=== PATIENT | female | born 1955 | race Caucasian/White ===

== ENCOUNTER 2018-12-11 16:08 | Emergency (ER) | payer OTHER ==
[~2018-12-11] VITALS: Ht 165.1 cm; Wt 83.5 kg
[2018-12-11] MEDS ORDERED: Bactrim Ds Tab1 EACH PO (16:45)
== END 2018-12-11 17:25 | disposition home or self-care (01) ==
LOC: ER 16:08
DX: L02.214 Cutaneous abscess of groin (principal); L03.314 Cellulitis of groin; Z88.0 Allergy status to penicillin; Z79.899 Other long term (current) drug therapy; I10 Essential (primary) hypertension; Z85.3 Personal history of malignant neoplasm of breast; Z87.891 Personal history of nicotine dependence
CPT/HCPCS: 10061; 99283-25

== ENCOUNTER 2018-12-19 09:44 | Emergency (ER) | payer OTHER ==
[~2018-12-19] VITALS: Ht 165.1 cm; Wt 83.5 kg
[~2018-12-19 09:44] MED LIST: Bactrim Ds Tab1 EACH PO
[2018-12-19] MEDS ORDERED: TOPI50 PO (10:06)
[2018-12-19] MEDS ORDERED: Bactrim Ds Tab1 EACH PO (10:06)
[2018-12-19] MEDS ORDERED: CLIN300 PO (10:06)
[2018-12-19] MEDS ORDERED: CARV3.125 PO (10:07)
[2018-12-19] MEDS ORDERED: Synthroid175 MCG PO (10:07)
[2018-12-19] MEDS ORDERED: CHOL10002 PO (10:08)
[2018-12-19] MEDS ORDERED: MELO7.5 PO (10:08)
[2018-12-19] MEDS ORDERED: Vitamin B Comple1 EA PO (10:09)
[2018-12-19] MEDS ORDERED: TURMERIC500 M2 PO (10:09)
[2018-12-19] MEDS ORDERED: Monodox100 MG PO (12:14)
== END 2018-12-19 12:43 | disposition home or self-care (01) ==
LOC: ER 09:44
DX: L02.214 Cutaneous abscess of groin (principal); Z88.0 Allergy status to penicillin; I10 Essential (primary) hypertension; Z85.3 Personal history of malignant neoplasm of breast; Z87.891 Personal history of nicotine dependence
CPT/HCPCS: 10061; 87070; 87075; 87077; 87186; 87205; 99283-25

== ENCOUNTER 2019-11-28 06:51 | Day surgery (SDC) | payer OTHER ==
[~2019-11-28 06:51] MED LIST changes: +CARV3.125 PO; +CHOL10002 PO; +CLIN300 PO; +MELO7.5 PO; +Monodox100 MG PO; +Synthroid175 MCG PO; +TOPI50 PO; +TURMERIC500 M2 PO; +Vitamin B Comple1 EA PO
== END 2019-11-28 22:39 | disposition home or self-care (01) ==
LOC: MOI US 06:51
DX: D24.2 Benign neoplasm of left breast (principal)
CPT/HCPCS: 19083; 77065; 88305; A4648; G0279

== ENCOUNTER 2020-12-12 15:21 | Emergency (ER) | payer MEDICARE, OTHER ==
[~2020-12-12] VITALS: Ht 167.6 cm; Wt 65.8 kg
[2020-12-12 16:10] LABS: BASOPHILS ABSOLUTE AUTO 0.07 K/mm3 (0.00-0.23); BASOPHILS PERCENT AUTO 1 % (0-2); EOSINOPHILS ABSOLUTE AUTO 0.29 K/mm3 (0.00-0.68); EOSINOPHILS PERCENT AUTO 6 % (0-6); Hematocrit 43.5 % (33.0-51.0); Hemoglobin 14.5 g/dL (11.5-16.0); IMMATURE GRAN ABSOLUTE AUTO 0.02 K/mm3 (0.00-0.10); IMMATURE GRAN PERCENT AUTO 0 % (0-1); LYMPHOCYTES ABSOLUTE AUTO 1.63 K/mm3 (0.84-5.20); LYMPHOCYTES PERCENT AUTO 32 % (21-46); MONOCYTES ABSOLUTE AUTO 0.55 K/mm3 (0.16-1.47); MONOCYTES PERCENT AUTO 11 % (4-13); Mean Corpuscular HGB 33.2 pg (26.0-34.0); Mean Corpuscular HGB Conc 33.3 g/dL (31.5-36.5); Mean Corpuscular Volume 100 fL (80-100); Mean Platelet Volume 12.2 fL (9.1-12.4); NEUTROPHILS ABSOLUTE AUTO 2.62 K/mm3 (1.96-9.15); NEUTROPHILS PERCENT AUTO 51 % (41-73); Platelet Count 157 K/mm3 (150-400); RDW Coefficient Variation 11.6 % (11.7-14.2); RDW Standard Deviation 42.5 fL (35.1-46.3); Red Blood Cell Count 4.37 M/mm3 (3.80-5.20); White Blood Cell Count 5.18 K/mm3 (4.00-11.30)
[2020-12-12 16:30] LABS: Alanine Aminotransfer (ALT/SGP 24 U/L (12-78); Albumin, Blood 3.4 g/dL (3.4-5.0); Albumin/Globulin Ratio 0.8 (0.8-1.8); Alk Phos 93 U/L (50-136); Anion Gap 10 mmol/L (6-16); Aspartate Aminotrans (AST/SGOT 18 U/L (12-37); Bilirubin, Total 0.3 mg/dL (0.1-1.0); Blood Urea Nitrogen 20 mg/dL (8-24); Bun/Creatinine Ratio 36.2 (12.0-20.0); CO2, Blood 21 mmol/L (21-32); Calcium, Blood 8.7 mg/dL (8.5-10.1); Chloride, Blood 109 mmol/L (98-108); Creatinine, Blood 0.55 mg/dL (0.40-1.00); Globulin, Blood 4.3 g/dL (2.2-4.0); Glomerular Filtration Rate >60 (60-); Glucose, Blood 100 mg/dL (70-99); Potassium, Blood 4.1 mmol/L (3.5-5.5); Sodium, Blood 140 mmol/L (136-145); Total Protein, Blood 7.7 g/dL (6.4-8.2); Troponin I <0.015 ng/mL (0.000-0.040)
== END 2020-12-12 19:10 | disposition home or self-care (01) ==
LOC: ER 15:21
PROVIDERS: Physician Assistant
DX: R07.89 Other chest pain (principal); M25.511 Pain in right shoulder; I10 Essential (primary) hypertension; Z88.0 Allergy status to penicillin; Z79.899 Other long term (current) drug therapy; Z87.891 Personal history of nicotine dependence
CPT/HCPCS: 36415; 71046; 80053; 84484; 85025; 93005; 93010; 96374; 99285-25; J1885

== ENCOUNTER 2021-06-04 10:16 | Day surgery (SDC) | payer MEDICARE, OTHER ==
[~2021-06-04] VITALS: Ht 160 cm; Wt 83.3 kg
--- NOTE | 2021-06-04 12:39 | NUR ---
06/04/21 1239 Chito Quijano 1233 TIME OUT PERFORMED FOR BLOCK WITH .
--- NOTE | 2021-06-04 13:19 | NUR ---
06/04/21 1319 Liu Flores 1 MG EPI ADDED TO EACH OF THE FIRST 3 BAGS OF LR PER ORDER FOR IRRIGATION.
== END 2021-06-04 15:24 | disposition home or self-care (01) ==
LOC: ORSCSDS 10:16
PROVIDERS: Orthopaedic Surgery
PROC: 0RNJ4ZZ Release Right Shoulder Joint, Percutaneous Endoscopic Approach (ICD-10-PCS; principal; 2021-06-04 11:45)
PROC: 0LS34ZZ Reposition Right Upper Arm Tendon, Percutaneous Endoscopic Approach (ICD-10-PCS; principal; 2021-06-04 11:45)
PROC: 0LQ14ZZ Repair Right Shoulder Tendon, Percutaneous Endoscopic Approach (ICD-10-PCS; principal; 2021-06-04 11:45)
PROC: 0PB94ZZ Excision of Right Clavicle, Percutaneous Endoscopic Approach (ICD-10-PCS; principal; 2021-06-04 11:45)
DX: M75.111 Incomplete rotator cuff tear or rupture of right shoulder, not specified as traumatic (principal); M75.21 Bicipital tendinitis, right shoulder; M75.41 Impingement syndrome of right shoulder; M19.011 Primary osteoarthritis, right shoulder; M79.7 Fibromyalgia; J45.909 Unspecified asthma, uncomplicated; I10 Essential (primary) hypertension; E03.9 Hypothyroidism, unspecified; Z79.82 Long term (current) use of aspirin; Z79.899 Other long term (current) drug therapy
CPT/HCPCS: A9270; C1713; J0171; J1100; J2001; J2250; J2405; J2704; J3010; J7120

== ENCOUNTER 2022-01-23 08:22 | Day surgery (SDC) | payer MEDICARE, OTHER ==
[~2022-01-23] VITALS: Ht 162.6 cm; Wt 76.5 kg
[2022-01-23] MEDS ORDERED: METO25ER (08:50)
[2022-01-23] MEDS ORDERED: FISH OIL 1,2001 EAC7 (08:51)
== END 2022-01-23 11:22 | disposition home or self-care (01) ==
LOC: ORSCSDS 08:22
PROVIDERS: Orthopaedic Surgery
PROC: 01S40ZZ Reposition Ulnar Nerve, Open Approach (ICD-10-PCS; principal; 2022-01-23 09:45)
PROC: 01N50ZZ Release Median Nerve, Open Approach (ICD-10-PCS; principal; 2022-01-23 09:45)
DX: G56.01 Carpal tunnel syndrome, right upper limb (principal); G56.21 Lesion of ulnar nerve, right upper limb; I10 Essential (primary) hypertension; E03.9 Hypothyroidism, unspecified; K21.9 Gastro-esophageal reflux disease without esophagitis; G47.33 Obstructive sleep apnea (adult) (pediatric); J45.909 Unspecified asthma, uncomplicated; M79.7 Fibromyalgia; Z79.899 Other long term (current) drug therapy; Z79.82 Long term (current) use of aspirin
CPT/HCPCS: A9270; J2250; J2405; J2704; J2795; J3010; J7120

== ENCOUNTER 2022-03-05 05:45 | Day surgery (SDC) | payer MEDICARE, OTHER ==
[~2022-03-05] VITALS: Ht 165.1 cm; Wt 78.0 kg
[~2022-03-05 05:45] MED LIST changes: +ALBU90OI INH; +Aspir 8181 MG PO; -CHOL10002 PO; +FISH OIL 1,2001 EAC7; +HYDR1TAB94 PO; +METO50ER PO; +OMEP20ER PO; +SYMBICORT 80-10.2 GM; +VITAMIN D310 MC5 PO; +ZEBUTAL 50-3251 EAC1
--- NOTE | 2022-03-05 07:29 | NUR ---
PT RETURNED TO RECOVERY ROOM IN BED. RIGHT FEMORAL GROIN SITE SOFT NON-TENDER WITH NO HEMATOMA, NO BLEEDING AND INTACT DRESSING. R DP PULSE 2+. PT DENIES CHEST PAIN. CALL LIGHT IN REACH.
--- NOTE | 2022-03-05 07:30 | NUR ---
PT TO RECOVERY ROOM POST PROCEDURE. PT AWAKE AND CONVERSING APPROPRIATELY; DENIES PAIN POST PROCEDURE. MONITOR SR 60-70'S, B/P 132/62, AFEBRILE, SPO2 98% RA. R GROIN NO SWELLING/HEMATOMA, TEGADERM DRSG INTACT; ANGIO SEAL DEPLOYED, RLE PULSES 2+ DP, 1+ PT. PT TAKING SIPS OF WATER WITHOUT ISSUE.
--- NOTE | 2022-03-05 08:13 | NUR ---
REPORT TO CHON TAVERAS; ALL QUESTIONS ANSWERED.
--- NOTE | 2022-03-05 10:00 | NUR ---
HOB RAISED TO 90 DEGREES, PT PREVIOUSLY ATE 100% OF MEAL TRAY. TOLERATED WITH NO DIFFICULTIES. RIGHT GROIN SITE APPEARED SOFT NON TENDER WITH NO PAIN OR BLEEDING NOTED. PT REQUEST TO GET UP FOR RESTROOM, SLOW STEADY GAIT USING CANE. UNMEASURED VOID. DENIES CP AND SOB. NO NEEDS AT THIS TIME.
--- NOTE | 2022-03-05 10:30 | NUR ---
PT'S UPDATED ON DISCHARGE TIME. PT ABLE TO MOVE AROUND FREELY ON [employer]. RIGHT GROIN SITE REMAINS SOFT NON TENDER WITH NO BLEEDING. DRESSING IS INTACT. PT CONTINUE TO DENY CHEST PAIN. CALL LIGHT IN REACH.
--- NOTE | 2022-03-05 11:25 | NUR ---
DISCHARGE PT AMBULATED TO RESTROOM AND DRESSED SELF WITH NO COMPLICATIONS. R FEMORAL SITE WITH NO BLEEDING, OOZING OR HEMATOMA NOTED. PT DENIES ANY PAIN. PT STATES HER UNDERSTANDING OF DC AND SITE CARE INSTRUCTIONS AND DENIES ANY QUESTIONS OR CONCERNS UPON DC. IV DCD WITH CATH INTACT. PT TAKEN TO EXIT VIA WHEELCHAIR WHERE SHAAN WAS WAITING WITH VEHICLE.
== END 2022-03-05 11:41 | disposition home or self-care (01) ==
LOC: MHTC 05:45
DX: I25.119 Atherosclerotic heart disease of native coronary artery with unspecified angina pectoris (principal); Z87.891 Personal history of nicotine dependence; I10 Essential (primary) hypertension; K21.9 Gastro-esophageal reflux disease without esophagitis; J45.909 Unspecified asthma, uncomplicated; G47.33 Obstructive sleep apnea (adult) (pediatric); E03.9 Hypothyroidism, unspecified; Z93.3 Colostomy status; Z79.82 Long term (current) use of aspirin; I08.2 Rheumatic disorders of both aortic and tricuspid valves; Z88.0 Allergy status to penicillin; Z88.6 Allergy status to analgesic agent; Z91.030 Bee allergy status
CPT/HCPCS: 93454; 99152; C1760; C1769; C1894; J1644; J2250; J3010; J7030; Q9967

== ENCOUNTER → 2022-08-05 | Outpatient (CLI) | payer MEDICARE, OTHER ==
[~2022-08-05] MED LIST changes: +Prednisone50 MG PO
== END ==
LOC: LAB 08:11 → LAB SHORT 08:11
DX: L57.0 Actinic keratosis (principal); L72.0 Epidermal cyst; S30.811A Abrasion of abdominal wall, initial encounter
CPT/HCPCS: 88305

== ENCOUNTER 2023-06-13 08:49 | Inpatient (IN) | payer MEDICARE, OTHER ==
[~2023-06-13] VITALS: Ht 165.1 cm; Wt 79.1 kg
[~2023-06-13 08:49] MED LIST changes: -SYMBICORT 80-10.2 GM; +SYMBICORT 80-10.2 GM INH
[2023-06-13 10:07] LABS: BASOPHILS ABSOLUTE AUTO 0.03 K/mm3 (0.00-0.23); BASOPHILS PERCENT AUTO 0 % (0-2); EOSINOPHILS ABSOLUTE AUTO 0.01 K/mm3 (0.00-0.68); EOSINOPHILS PERCENT AUTO 0 % (0-6); Hematocrit 47.3 % (33.0-51.0); Hemoglobin 16.4 g/dL (11.5-16.0); IMMATURE GRAN ABSOLUTE AUTO 0.08 K/mm3 (0.00-0.10); IMMATURE GRAN PERCENT AUTO 1 % (0-1); LYMPHOCYTES ABSOLUTE AUTO 1.12 K/mm3 (0.84-5.20); LYMPHOCYTES PERCENT AUTO 7 % (21-46); MONOCYTES ABSOLUTE AUTO 0.93 K/mm3 (0.16-1.47); MONOCYTES PERCENT AUTO 6 % (4-13); Mean Corpuscular HGB 33.4 pg (26.0-34.0); Mean Corpuscular HGB Conc 34.7 g/dL (31.5-36.5); Mean Corpuscular Volume 96 fL (80-100); NEUTROPHILS ABSOLUTE AUTO 13.43 K/mm3 (1.96-9.15); NEUTROPHILS PERCENT AUTO 86 % (41-73); Platelet Count 244 K/mm3 (150-400); RDW Coefficient Variation 13.6 % (11.7-14.2); RDW Standard Deviation 48.4 fL (35.1-46.3); Red Blood Cell Count 4.91 M/mm3 (3.80-5.20)
[2023-06-13 10:26] LABS: Albumin, Blood 2.7 g/dL (3.4-5.0); Albumin/Globulin Ratio 0.6 (0.8-1.8); Bilirubin, Total 0.6 mg/dL (0.1-1.0); Bun/Creatinine Ratio 66.7 (12.0-20.0); Calcium, Blood 8.4 mg/dL (8.5-10.1); Creatinine, Blood 0.5 mg/dL (0.40-1.00); Globulin, Blood 4.4 g/dL (2.2-4.0); Potassium, Blood 3.6 mmol/L (3.5-5.5); Total Protein, Blood 7.1 g/dL (6.4-8.2)
[2023-06-13 10:36] LABS: Source, Urine Clean Catch
[2023-06-13 10:39] LABS: Bilirubin, Urine Neg (Neg); Blood, Urine 1+ (Neg); Glucose Qualitative, Urine Neg (Neg); Ketones, Urine 1+ (Neg); Leukocyte Esterase, Urine Neg (Neg); Nitrite, Urine Neg (Neg); Protein, Urine 2+ (Neg); Urobilinogen, Urine NORM (Normal); pH, Urine 6.5 (5.0-8.0)
[2023-06-13 10:45] LABS: Appearance, Urine Clear (Clear); Color, Urine Yellow (P-Yellow)
[2023-06-13 10:47] LABS: Bacteria Few /hpf; Red Blood Cells, Urine 0-2 /hpf (0-2); Squamous Epithelial Cells Mod /hpf (Few); White Blood Cells, Urine 0-2 /hpf (0-5)
[2023-06-13 13:49] VITALS: BP 155/71
--- NOTE | 2023-06-13 18:27 | NUR ---
SHIFT SUMMARY PT AXO PLEASANT AND COOPERATIVE WITH CARE. ADMITTED THIS SHIFT. PT ARRIVED TO ROOM VIA WHEELCHAIR AT 1330. PT MEDICATED FOR PAIN AND NAUSEA PER EMAR. PT EDUCATED ON FIRE PREVENTION AND IGNITION SOURCES. PT DEMONSTRATES KNOWLEDGE AND DENIES IGNITION SOURCES. IV PATENT AND INFUSING PER EMAR. PT NPO. BED IN LOW POSITION, CALL LIGHT WITHIN REACH. UP WITH SBA WITH GB AND FWW.
[2023-06-13 19:18] VITALS: BP 141/63
[2023-06-14 03:10] VITALS: BP 157/63
[2023-06-14 05:04] LABS: BASOPHILS ABSOLUTE AUTO 0.04 K/mm3 (0.00-0.23); BASOPHILS PERCENT AUTO 0 % (0-2); EOSINOPHILS ABSOLUTE AUTO 0.04 K/mm3 (0.00-0.68); EOSINOPHILS PERCENT AUTO 0 % (0-6); Hemoglobin 13.7 g/dL (11.5-16.0); IMMATURE GRAN ABSOLUTE AUTO 0.04 K/mm3 (0.00-0.10); IMMATURE GRAN PERCENT AUTO 0 % (0-1); LYMPHOCYTES ABSOLUTE AUTO 0.85 K/mm3 (0.84-5.20); LYMPHOCYTES PERCENT AUTO 7 % (21-46); MONOCYTES ABSOLUTE AUTO 1.01 K/mm3 (0.16-1.47); MONOCYTES PERCENT AUTO 9 % (4-13); Mean Corpuscular HGB 33.3 pg (26.0-34.0); Mean Corpuscular HGB Conc 33.4 g/dL (31.5-36.5); Mean Corpuscular Volume 100 fL (80-100); Mean Platelet Volume 12.5 fL (9.1-12.4); NEUTROPHILS ABSOLUTE AUTO 9.54 K/mm3 (1.96-9.15); NEUTROPHILS PERCENT AUTO 83 % (41-73); Platelet Count 172 K/mm3 (150-400); RDW Coefficient Variation 13.9 % (11.7-14.2); RDW Standard Deviation 50.9 fL (35.1-46.3); Red Blood Cell Count 4.11 M/mm3 (3.80-5.20); White Blood Cell Count 11.52 K/mm3 (4.00-11.30)
[2023-06-14 05:51] LABS: Albumin, Blood 2.1 g/dL (3.4-5.0); Albumin/Globulin Ratio 0.6 (0.8-1.8); Bilirubin, Total 0.5 mg/dL (0.1-1.0); Bun/Creatinine Ratio 59.4 (12.0-20.0); Calcium, Blood 7.6 mg/dL (8.5-10.1); Creatinine, Blood 0.44 mg/dL (0.40-1.00); Globulin, Blood 3.5 g/dL (2.2-4.0); Magnesium, Blood 1.9 mg/dL (1.6-2.4); Potassium, Blood 3.3 mmol/L (3.5-5.5); Thyroid Stimulating Hormone 2.16 uIU/mL (0.360-4.800); Total Protein, Blood 5.6 g/dL (6.4-8.2)
--- NOTE | 2023-06-14 06:02 | NUR ---
SHIFT SUMMARY PT SITTING UP IN BED DURING BEDSIDE ROUNDS, IV INFUSING AT 200ML/HR- IGNITION ASSESSMENT DONE- PT DENIED SMOKING OR HAVING AN ITEMS OF IGNITION, GAVE TORADOL AND DILAUDID FOR PAIN MANAGEMENT, PT REFUSED STOOL SOFTNER- PT CONCERNED OF GETTING NAUSEATED- ASSISTED PT TO BR- PT USED FWW WITHOUT PROBLEMS, 0300 PT UP TO BR - BP ELEVATED D/T PT REPORTS PAIN 06/18- GAVE TORADOL SCHEDULED- WILL MONITOR FOR RELIEF- REPEAT DOSE OF DILAUDID D/T 05/18 PAIN-BED LOW POSITION, CALL LIGHT WITHIN REACH, PT USES CALL LIGHT APPROPRIATE
[2023-06-14 07:43] VITALS: BP 116/70
--- NOTE | 2023-06-14 08:00 | NUR ---
pt laying in bed awake a/ox4, pleasant and cooperative with care, follows commands well, reports stomach pain, and nausea and isn't tolerating any liquids yet, lungs are clear t/o, resp even and unlabored, no cough noted, hrr, murmur noted, no edema noted, ppp+2, cap refill <3sec, vs stable, afebrile, iv site to lac site is clear and patent, infusing ns at 125mls/hr, bt not auscultated, abd soft tender, reports no bm in 6 days, and is not normal for her, voids without diff, skin c/w/d, maew, katarina, call light in reach.
--- NOTE | 2023-06-14 13:32 | NUR ---
medicated for pain, spouce in room, assisted to bathroom, pt does pretty well using a walker, but needs sba, not tolerating liquids yet, states she is agreeable to enema for constipation. call light in reach.
[2023-06-14 14:00] VITALS: BP 134/53
--- NOTE | 2023-06-14 17:14 | NUR ---
gave pt fleets, she had results, was very tired after, states she felt like it was a bowling ball, assisted back to bed, no further needs at this time. call light in reach.
--- NOTE | 2023-06-14 18:30 | NUR ---
pt feeling some better having had a bm, no complaints or acute changes this shift. call light in reach.
[2023-06-14 19:09] VITALS: BP 148/63
[2023-06-15 05:00] LABS: BASOPHILS ABSOLUTE AUTO 0.02 K/mm3 (0.00-0.23); BASOPHILS PERCENT AUTO 0 % (0-2); EOSINOPHILS ABSOLUTE AUTO 0.04 K/mm3 (0.00-0.68); EOSINOPHILS PERCENT AUTO 0 % (0-6); Hematocrit 38.1 % (33.0-51.0); Hemoglobin 12.5 g/dL (11.5-16.0); IMMATURE GRAN ABSOLUTE AUTO 0.06 K/mm3 (0.00-0.10); IMMATURE GRAN PERCENT AUTO 1 % (0-1); LYMPHOCYTES ABSOLUTE AUTO 0.73 K/mm3 (0.84-5.20); LYMPHOCYTES PERCENT AUTO 7 % (21-46); MONOCYTES ABSOLUTE AUTO 1.05 K/mm3 (0.16-1.47); MONOCYTES PERCENT AUTO 10 % (4-13); Mean Corpuscular HGB 33.9 pg (26.0-34.0); Mean Corpuscular HGB Conc 32.8 g/dL (31.5-36.5); Mean Corpuscular Volume 103 fL (80-100); Mean Platelet Volume 12.1 fL (9.1-12.4); NEUTROPHILS ABSOLUTE AUTO 8.66 K/mm3 (1.96-9.15); NEUTROPHILS PERCENT AUTO 82 % (41-73); Platelet Count 147 K/mm3 (150-400); RDW Coefficient Variation 14.1 % (11.7-14.2); RDW Standard Deviation 53.8 fL (35.1-46.3); Red Blood Cell Count 3.69 M/mm3 (3.80-5.20); White Blood Cell Count 10.56 K/mm3 (4.00-11.30)
[2023-06-15 05:13] VITALS: BP 143/66
[2023-06-15 05:23] LABS: Albumin, Blood 1.6 g/dL (3.4-5.0); Albumin/Globulin Ratio 0.5 (0.8-1.8); Bilirubin, Total 0.5 mg/dL (0.1-1.0); Bun/Creatinine Ratio 24.6 (12.0-20.0); Calcium, Blood 7.5 mg/dL (8.5-10.1); Creatinine, Blood 0.41 mg/dL (0.40-1.00); Globulin, Blood 3.4 g/dL (2.2-4.0); Potassium, Blood 3.1 mmol/L (3.5-5.5)
--- NOTE | 2023-06-15 06:59 | NUR ---
SHIFT SUMMARY PT SITTING UP IN BED DURING BEDSIDE ROUNDS, PT REPORTS NOT TOLERATING CLEARS- PT REPORTED HAVING BROTH THIS AM AND VOMITTED IT UP INSTANTLY- IGNITION ASSESSMENT DONE- PT DENIES HAVING ANY ITEMS OF IGNITION- PT REFUSED SCHEDULED STOOL SOFTNER AND PROBIOTIC D/T NAUSEA- PT REPORTED HAVING A LARGE BM TODAY AFTER ENEMA AND FEELS LIKE SHE NEEDS TO HAVE MORE BUT REFUSES ANY BOWEL CARE AT THIS TIME- GAVE DILAUDID FOR PT CONTINUES TO REPORT UPPER ABD PAIN- IV INFUSING WITHOUT PROBLEMS, PT USES CALL LIGHT APPROPRIATELY
[2023-06-15 08:04] VITALS: BP 140/64
--- NOTE | 2023-06-15 15:09 | NUR ---
Patient is lying in bed and alert. She tells me about the events that led to her hospitalization and about her concerns going forward. She talks about her Christain mary, her strong family support and her many pets at home. Her family consists of her spouse, Josh, her dtr, his dtr and 13 grandchildren. She states that she would like me to pray that the doctors have clear direction and are able to get to the heart of the infection. I gladly provide therapeutic listening, prayer and anxiety containment. Patient responds well and shows signs of greater peace. I will continue to remain available.
--- NOTE | 2023-06-15 17:21 | NUR ---
SHIFT SUMMARY PT AxOx4. PLEASANT AND COOPERATIVE WITH CARE. PT UNABLE TO EAT OR DRINK MORE THAN A FEW SIPS OF LIQUID THIS SHIFT D/T INCREASED STOMACH PAINS WITH EATING. PT IS ON IV FLUIDS. PT REPORTS POOR PAIN CONTROL WITH PAIN MEDS TODAY. PROVIDER NOTIFIED AND MEDS ADJUSTED. PT REPORTS CHANGES ARE NOT HELPING, BUT IS WILLING TO GIVE IT MORE TIME. PT IS SBA WITH FWW TO BATHROOM. CALLS APPROPRIATELY. IN ROOM TODAY, UPDATED ON PLAN OF CARE. VITALS REVIEWED. PT IS CURRENTLY LYING IN BED, TRYING TO NAP. PT WAS EDUCATED ON FIRE RISK AND SAFETY, WITH VERBALIZED UNDERSTANDING. PT DENIES ANY NEEDS AT THIS TIME. CALL LIGHT IN REACH.
[2023-06-15 17:33] VITALS: BP 132/55
[2023-06-15 19:32] VITALS: BP 132/62
--- NOTE | 2023-06-16 04:31 | NUR ---
SHIFT SUMMARY ADMITTED FOR IDIOPATHIC PANCREATITIS. FULL CODE. SHE IS ON A CLEAR LIQUID DIET, BUT CONSUMING LITTLE DUE TO ABDOMINAL PAIN. D5 1/2 NS IS INFUSING. ANTI NAUSEA AND PAIN RX HAVE BEEN GIVEN THIS SHIFT. SHE STATES THE PO PAIN RX IS INADEQUATE TO CONTROL HER PAIN. HX OF BREAST CA IN REMISSION, COPD. SHE STATES SHE RARELY DRINKS. SHE DID FALL INTO A COUNTERTOP ONE WEEK PREVIOUS. STANDBY ASSIST W/FWW - BRP. ON RA.
[2023-06-16 05:00] LABS: BASOPHILS ABSOLUTE AUTO 0.02 K/mm3 (0.00-0.23); BASOPHILS PERCENT AUTO 0 % (0-2); EOSINOPHILS ABSOLUTE AUTO 0.13 K/mm3 (0.00-0.68); EOSINOPHILS PERCENT AUTO 1 % (0-6); Hematocrit 36.6 % (33.0-51.0); IMMATURE GRAN ABSOLUTE AUTO 0.06 K/mm3 (0.00-0.10); IMMATURE GRAN PERCENT AUTO 1 % (0-1); LYMPHOCYTES ABSOLUTE AUTO 0.73 K/mm3 (0.84-5.20); LYMPHOCYTES PERCENT AUTO 8 % (21-46); MONOCYTES ABSOLUTE AUTO 1.15 K/mm3 (0.16-1.47); MONOCYTES PERCENT AUTO 12 % (4-13); Mean Corpuscular HGB 33.1 pg (26.0-34.0); Mean Corpuscular HGB Conc 32.8 g/dL (31.5-36.5); Mean Corpuscular Volume 101 fL (80-100); Mean Platelet Volume 11.8 fL (9.1-12.4); NEUTROPHILS ABSOLUTE AUTO 7.67 K/mm3 (1.96-9.15); NEUTROPHILS PERCENT AUTO 79 % (41-73); Platelet Count 160 K/mm3 (150-400); RDW Coefficient Variation 13.7 % (11.7-14.2); Red Blood Cell Count 3.63 M/mm3 (3.80-5.20); White Blood Cell Count 9.76 K/mm3 (4.00-11.30)
[2023-06-16 05:01] VITALS: BP 96/60
[2023-06-16 05:17] VITALS: BP 135/60
[2023-06-16 05:35] LABS: Albumin, Blood 1.6 g/dL (3.4-5.0); Albumin/Globulin Ratio 0.4 (0.8-1.8); Bilirubin, Total 0.5 mg/dL (0.1-1.0); Bun/Creatinine Ratio 10.4 (12.0-20.0); Calcium, Blood 7.6 mg/dL (8.5-10.1); Creatinine, Blood 0.48 mg/dL (0.40-1.00); Globulin, Blood 3.7 g/dL (2.2-4.0); Potassium, Blood 3.4 mmol/L (3.5-5.5); Total Protein, Blood 5.3 g/dL (6.4-8.2)
[2023-06-16 08:15] VITALS: BP 121/51
[2023-06-16 16:16] VITALS: BP 109/58
--- NOTE | 2023-06-16 19:28 | NUR ---
SHIFT SUMMARY PT A&OX4 AND PLEASANT. PT UNABLE TO TOLERATE CL DIET D/T PAIN. PT STATED IT CAUSED PAIN WHEN SHE ATTEMPTED TO TAKE A COUPLE BITES OF BROTH THIS MORNING ANS HAS SINCE REFUSED HER LUNCH AND DINNER TRAY. PT WAS ABLE TO HAVE TWO SMALL BM'S. PT C/O PAIN AND NAUSEA AND MEDICATED PER EMAR. TORADOL WAS GIVEN IN THE AFTERNOON WITH VERY GOOD EFFECT. PT'S WAS AT BEDSIDE DURING THE AFTERNOON. PT WAS TAKEN FOR CT SCAN OF ABD THIS MORNING. RESULTS UNDER IMAGING. PT CALL APPROPRIATLY. BED IN LOWEST POSITION AND CALL LIGHT IN REACH.
[2023-06-16 19:45] VITALS: BP 110/58
[2023-06-17 04:25] VITALS: BP 112/54
[2023-06-17 04:51] LABS: BASOPHILS ABSOLUTE AUTO 0.02 K/mm3 (0.00-0.23); BASOPHILS PERCENT AUTO 0 % (0-2); EOSINOPHILS ABSOLUTE AUTO 0.16 K/mm3 (0.00-0.68); EOSINOPHILS PERCENT AUTO 2 % (0-6); Hematocrit 34.1 % (33.0-51.0); Hemoglobin 11.4 g/dL (11.5-16.0); IMMATURE GRAN ABSOLUTE AUTO 0.02 K/mm3 (0.00-0.10); IMMATURE GRAN PERCENT AUTO 0 % (0-1); LYMPHOCYTES ABSOLUTE AUTO 0.69 K/mm3 (0.84-5.20); LYMPHOCYTES PERCENT AUTO 9 % (21-46); MONOCYTES ABSOLUTE AUTO 0.95 K/mm3 (0.16-1.47); MONOCYTES PERCENT AUTO 12 % (4-13); Mean Corpuscular HGB 33.6 pg (26.0-34.0); Mean Corpuscular HGB Conc 33.4 g/dL (31.5-36.5); Mean Corpuscular Volume 101 fL (80-100); NEUTROPHILS ABSOLUTE AUTO 5.93 K/mm3 (1.96-9.15); NEUTROPHILS PERCENT AUTO 76 % (41-73); Platelet Count 177 K/mm3 (150-400); RDW Coefficient Variation 13.7 % (11.7-14.2); RDW Standard Deviation 50.7 fL (35.1-46.3); Red Blood Cell Count 3.39 M/mm3 (3.80-5.20); White Blood Cell Count 7.77 K/mm3 (4.00-11.30)
--- NOTE | 2023-06-17 04:54 | NUR ---
SHIFT SUMMARY MS HENDRIX HAS HAD UPPER ABDOMINAL PAIN THROUGHOUT THE NIGHT. PAIN HAS BEEN 6-7/10 DESPITE MEDICATIONS. DILAUDID TOOK PAIN FROM 05/18 TO 04/18. SHE HAS TAKEN SIPS OF WATER WITH MEDICATIONS. SHE REPORTS AN INCREASE IN PAIN WHEN SHE DRINKS FLUIDS. CONTINUOUS IVF AT 75CC/HR. MILD NAUSEA CONSTANTLY WITH ONE EPISODE OF NAUSEA REQUIRING ZOFRAN. 1 PERSON ASSISTANCE UP TO THE BATHROOM. STEADY GAIT THOUGH SHE FEELS WEAK. BED LOW, BED ALARM ON, CALL IGHT IN REACH.
[2023-06-17 05:09] LABS: Albumin, Blood 1.6 g/dL (3.4-5.0); Albumin/Globulin Ratio 0.4 (0.8-1.8); Bilirubin, Total 0.4 mg/dL (0.1-1.0); Bun/Creatinine Ratio 11.3 (12.0-20.0); Calcium, Blood 7.8 mg/dL (8.5-10.1); Creatinine, Blood 0.36 mg/dL (0.40-1.00); Globulin, Blood 3.7 g/dL (2.2-4.0); Total Protein, Blood 5.3 g/dL (6.4-8.2)
[2023-06-17 07:30] VITALS: BP 143/57
[2023-06-17 15:54] VITALS: BP 127/46
[2023-06-17 19:17] VITALS: BP 133/59
--- NOTE | 2023-06-17 19:22 | NUR ---
SHIFT SUMMARY PT A&OX4 AND PLEASANT. PT STILL UNABLE TO TOLERATE CL DIET. PAIN IS CONSISTANTLY AROUND 5 ON THE PAIN SCALE. PT VERBALIZED FEELING NAUSEOUS TWICE DURING THE SHIFT. MEDICATED PER EMAR. PT HAS TROUBLE WITH ORAL MEDICATIONS D/T PAIN AND DRY HEAVING WHEN SWALLING WATER. MEDICATIONS ARE GIVEN SLOWLY AND SPREAD APART. PPN NUTRITION STARTED TODAY. PICC LINE PLACED. AT BEDSIDE DURING AFTERNOON. DR. DUVAL IN TO SEE PT. CONTINUING IV ABX. VSS. BED IN LOWEST POSITION AND CALL LIGHT IN REACH.
[2023-06-18 02:05] VITALS: BP 132/60
[2023-06-18 05:40] LABS: BASOPHILS ABSOLUTE AUTO 0.03 K/mm3 (0.00-0.23); BASOPHILS PERCENT AUTO 0 % (0-2); EOSINOPHILS ABSOLUTE AUTO 0.19 K/mm3 (0.00-0.68); EOSINOPHILS PERCENT AUTO 2 % (0-6); Hematocrit 35.8 % (33.0-51.0); IMMATURE GRAN ABSOLUTE AUTO 0.03 K/mm3 (0.00-0.10); IMMATURE GRAN PERCENT AUTO 0 % (0-1); LYMPHOCYTES ABSOLUTE AUTO 0.94 K/mm3 (0.84-5.20); LYMPHOCYTES PERCENT AUTO 11 % (21-46); MONOCYTES ABSOLUTE AUTO 1.01 K/mm3 (0.16-1.47); MONOCYTES PERCENT AUTO 12 % (4-13); Mean Corpuscular HGB 33.7 pg (26.0-34.0); Mean Corpuscular HGB Conc 33.5 g/dL (31.5-36.5); Mean Corpuscular Volume 101 fL (80-100); NEUTROPHILS ABSOLUTE AUTO 6.45 K/mm3 (1.96-9.15); NEUTROPHILS PERCENT AUTO 75 % (41-73); Platelet Count 204 K/mm3 (150-400); RDW Standard Deviation 51.8 fL (35.1-46.3); Red Blood Cell Count 3.56 M/mm3 (3.80-5.20); White Blood Cell Count 8.65 K/mm3 (4.00-11.30)
[2023-06-18 06:07] LABS: Magnesium, Blood 1.9 mg/dL (1.6-2.4)
[2023-06-18 06:08] LABS: Alanine Aminotransfer (ALT/SGP 21 U/L (12-78); Albumin, Blood 1.6 g/dL (3.4-5.0); Albumin/Globulin Ratio 0.4 (0.8-1.8); Alk Phos 93 U/L (50-136); Anion Gap 4 mmol/L (6-16); Aspartate Aminotrans (AST/SGOT 27 U/L (12-37); Bilirubin, Total 0.3 mg/dL (0.1-1.0); Blood Urea Nitrogen 8 mg/dL (8-24); Bun/Creatinine Ratio 25.6 (12.0-20.0); CO2, Blood 30 mmol/L (21-32); Calcium, Blood 8.3 mg/dL (8.5-10.1); Chloride, Blood 105 mmol/L (98-108); Creatinine, Blood 0.31 mg/dL (0.40-1.00); Globulin, Blood 4.3 g/dL (2.2-4.0); Glomerular Filtration Rate 115 (60-); Glucose, Blood 131 mg/dL (70-99); Phosphorus, Blood 2.5 mg/dL (2.5-4.9); Potassium, Blood 3.5 mmol/L (3.5-5.5); Prealbumin, Blood 4.8 mg/dL (20.0-40.0); Sodium, Blood 139 mmol/L (136-145); Total Protein, Blood 5.9 g/dL (6.4-8.2); Triglycerides 88 mg/dL (30-160)
--- NOTE | 2023-06-18 06:20 | NUR ---
SHIFT SUMMARY PRN PAIN AND NAUSEA MEDS GIVEN, PT STATES PAIN IS MUCH IMPROVED WITH DILAUDID. PT NOT ABLE TO TOLERATE PREVIOUS ORAL FLUIDS, SUGGESTED PT DRINK ROOM TEMPERATRURE LIQUIDS. PT ABLE TO TAKE MEDICATIONS AND DRINK ONE FULL GLASS OF WATER, NO VOMITING. FIRE SAFETY CHECKS COMPLETED Q1H, NO IGNITION SOURCES FOUND
[2023-06-18 07:40] VITALS: BP 121/65
--- NOTE | 2023-06-18 07:48 | NUR ---
pt laying in bed awake a/ox4, pleasant and cooperative with care, follows commands well, denies pain at this time, lungs are clear a bit dim in bases, resp even and unlabored, no cough noted, hrr, no edema noted, ppp+1, cap refill <3 sec, vs stable, afebrile, iv is picc line to mini site is clear and patent, infusing ppn, and d51/2, dressing intact, btx4, abd flat soft nontender, voids without diff, skin c/w/d, maew, uses walker to ambulate, skin c/w/d, maew, katarina, call light in reach.
[2023-06-18 15:53] VITALS: BP 118/54
--- NOTE | 2023-06-18 18:25 | NUR ---
pt had a bout of nasea this afternoon, zofran was effective, no further changes this shift. call light in reach.
[2023-06-18 19:32] VITALS: BP 148/61
[2023-06-19 05:16] VITALS: BP 114/50
[2023-06-19 05:39] LABS: BASOPHILS ABSOLUTE AUTO 0.02 K/mm3 (0.00-0.23); BASOPHILS PERCENT AUTO 0 % (0-2); EOSINOPHILS ABSOLUTE AUTO 0.19 K/mm3 (0.00-0.68); EOSINOPHILS PERCENT AUTO 3 % (0-6); Hematocrit 34.2 % (33.0-51.0); Hemoglobin 11.4 g/dL (11.5-16.0); IMMATURE GRAN ABSOLUTE AUTO 0.05 K/mm3 (0.00-0.10); IMMATURE GRAN PERCENT AUTO 1 % (0-1); LYMPHOCYTES ABSOLUTE AUTO 0.89 K/mm3 (0.84-5.20); LYMPHOCYTES PERCENT AUTO 13 % (21-46); MONOCYTES ABSOLUTE AUTO 1.06 K/mm3 (0.16-1.47); MONOCYTES PERCENT AUTO 15 % (4-13); Mean Corpuscular HGB 33.4 pg (26.0-34.0); Mean Corpuscular HGB Conc 33.3 g/dL (31.5-36.5); Mean Corpuscular Volume 100 fL (80-100); Mean Platelet Volume 11.8 fL (9.1-12.4); NEUTROPHILS ABSOLUTE AUTO 4.77 K/mm3 (1.96-9.15); NEUTROPHILS PERCENT AUTO 68 % (41-73); Platelet Count 204 K/mm3 (150-400); RDW Coefficient Variation 14.1 % (11.7-14.2); RDW Standard Deviation 52.7 fL (35.1-46.3); Red Blood Cell Count 3.41 M/mm3 (3.80-5.20); White Blood Cell Count 6.98 K/mm3 (4.00-11.30)
--- NOTE | 2023-06-19 06:26 | NUR ---
PT LAYING IN BED DURING BEDSIDE REPORT- PT REQUESTED PAIN MEDICATION DURING BEDSIDE REPORT - GAVE DILAUDID 1MG IV- CALL TO [facility] INTERN LATER IN THE NIGHT REQUESTING ORAL PAIN MED- PT HAD SCHEDULED NORCO THAT STOPPED 06/18/23 - PT REPORTS GETTING RELIEF FROM THE ORAL PAIN MED- NEW ORDER FOR NORCO 7.5 PRN- GAVE A DOSE LATER IN THE SHIFT - PT REQUESTED MELATONIN EARLY AND WAS ABLE TO GET GOOD SLEEP PER PT- TPN INFUSING IN LEFT UPPER ARM PICC- PT CALLS APPROPRIATELY AND AMBULATED TO WITH FWW AND SBA, BED LOW POSITION, CALL LIGHT WITHIN REACH
[2023-06-19 06:58] LABS: Albumin, Blood 1.5 g/dL (3.4-5.0); Albumin/Globulin Ratio 0.4 (0.8-1.8); Bilirubin, Total 0.4 mg/dL (0.1-1.0); Bun/Creatinine Ratio 50.7 (12.0-20.0); Calcium, Blood 8.2 mg/dL (8.5-10.1); Creatinine, Blood 0.34 mg/dL (0.40-1.00); Globulin, Blood 3.9 g/dL (2.2-4.0); Phosphorus, Blood 4.7 mg/dL (2.5-4.9); Potassium, Blood 3.3 mmol/L (3.5-5.5); Total Protein, Blood 5.4 g/dL (6.4-8.2)
[2023-06-19 07:44] VITALS: BP 123/51
--- NOTE | 2023-06-19 08:45 | NUR ---
pt resting in bed, wakes easily, states she is feeling some better today, looks brighter, ordered toridol for her, report abd pain at 5/10, lungs are clear t/o, resp even and unlabored, on r/a, no cough noted, hrr, no edema noted, ppp+2, cap refill <3 sec, vs stable, afebrile, iv is picc line to mini site is clear and patent, btx4, abd flat soft nontender, voids without diff, reports a number of loose stools yesterday and wants to hold the stool softeners today, also doesn't want asa as she feels it will irritate her stomach, skin c/w/d, cali, uses a walker to ambulate and is a sba to the bathroom, katarina, call light in reach.
[2023-06-19 15:25] VITALS: BP 140/63
--- NOTE | 2023-06-19 18:19 | NUR ---
pt doing much better today, is tolerating some liquids, no further changes this shift. call light in reach.
[2023-06-19 19:22] VITALS: BP 135/62
[2023-06-20 02:57] VITALS: BP 141/52
[2023-06-20 05:29] LABS: BASOPHILS ABSOLUTE AUTO 0.03 K/mm3 (0.00-0.23); BASOPHILS PERCENT AUTO 1 % (0-2); EOSINOPHILS ABSOLUTE AUTO 0.21 K/mm3 (0.00-0.68); EOSINOPHILS PERCENT AUTO 3 % (0-6); Hematocrit 35.2 % (33.0-51.0); Hemoglobin 11.8 g/dL (11.5-16.0); IMMATURE GRAN ABSOLUTE AUTO 0.02 K/mm3 (0.00-0.10); IMMATURE GRAN PERCENT AUTO 0 % (0-1); LYMPHOCYTES ABSOLUTE AUTO 0.77 K/mm3 (0.84-5.20); LYMPHOCYTES PERCENT AUTO 12 % (21-46); MONOCYTES ABSOLUTE AUTO 1.02 K/mm3 (0.16-1.47); MONOCYTES PERCENT AUTO 16 % (4-13); Mean Corpuscular HGB 33.8 pg (26.0-34.0); Mean Corpuscular HGB Conc 33.5 g/dL (31.5-36.5); Mean Corpuscular Volume 101 fL (80-100); Mean Platelet Volume 11.7 fL (9.1-12.4); NEUTROPHILS PERCENT AUTO 67 % (41-73); Platelet Count 210 K/mm3 (150-400); RDW Coefficient Variation 14.1 % (11.7-14.2); RDW Standard Deviation 52.3 fL (35.1-46.3); Red Blood Cell Count 3.49 M/mm3 (3.80-5.20); White Blood Cell Count 6.25 K/mm3 (4.00-11.30)
[2023-06-20 05:59] LABS: Albumin, Blood 1.6 g/dL (3.4-5.0); Albumin/Globulin Ratio 0.4 (0.8-1.8); Bilirubin, Total 0.3 mg/dL (0.1-1.0); Bun/Creatinine Ratio 35.1 (12.0-20.0); Calcium, Blood 8.3 mg/dL (8.5-10.1); Creatinine, Blood 0.37 mg/dL (0.40-1.00); Globulin, Blood 4.5 g/dL (2.2-4.0); Magnesium, Blood 2.1 mg/dL (1.6-2.4); Phosphorus, Blood 3.6 mg/dL (2.5-4.9); Potassium, Blood 4.1 mmol/L (3.5-5.5); Total Protein, Blood 6.1 g/dL (6.4-8.2)
--- NOTE | 2023-06-20 06:35 | NUR ---
PT SITTING UP IN BED DURING BEDSIDE REPORT, TPN INFUSING TO LEFT UPPER ARM PICC LINE, PT REPORTS PAIN AND NAUSEA HAS BEEN DECREASED ALL DAY- PT ON SCHEDULED NORCO AND REPORTS PAIN IN CONTROL- PT TOOK HS MEDS WITHOUT PROBLEMS, PT CALLS APPROPRIATELY FOR SBA TO RESTROOM WITH WALKER- PT TOOK MELATONIN AND TORADOL TO HELP SLEEP - PT SLEPT T/O NIGHT, BED LOW POSITION, CALL LIGHT WITHIN REACH
[2023-06-20 07:35] VITALS: BP 105/60
[2023-06-20 15:16] VITALS: BP 132/55
--- NOTE | 2023-06-20 16:28 | NUR ---
SHIFT SUMMARY PATIENT IS ALERT AND ORIENTED. PATIENT HAS HAD NO ACUTE EVENTS THIS SHIFT. PATIENT HAS HAD TPN DISCONTINUED. PATIENT HAS BEEN UPGRADED TO MECHANICAL SOFT DIET AND TOLERATIN WELL. PATIENT HAS NOT NEEDED ADDITIONAL PAIN MEDICATION OTHER THAN SCHEDULED PAIN MEDS. PATIENT HAS BEEN PLEASENT AND COOPERATIVE. BED IN LOCKED AND LOWEST POSITION. CALL LIGHT IN PLACE. WILL MONITOR UNTIL SHIFT CHANGE.
[2023-06-20 19:30] VITALS: BP 125/54
[2023-06-21 02:48] VITALS: BP 134/59
[2023-06-21 05:15] LABS: BASOPHILS ABSOLUTE AUTO 0.04 K/mm3 (0.00-0.23); BASOPHILS PERCENT AUTO 1 % (0-2); EOSINOPHILS ABSOLUTE AUTO 0.24 K/mm3 (0.00-0.68); EOSINOPHILS PERCENT AUTO 4 % (0-6); Hematocrit 33.7 % (33.0-51.0); Hemoglobin 11.1 g/dL (11.5-16.0); IMMATURE GRAN ABSOLUTE AUTO 0.05 K/mm3 (0.00-0.10); IMMATURE GRAN PERCENT AUTO 1 % (0-1); LYMPHOCYTES ABSOLUTE AUTO 0.85 K/mm3 (0.84-5.20); LYMPHOCYTES PERCENT AUTO 13 % (21-46); MONOCYTES ABSOLUTE AUTO 1.01 K/mm3 (0.16-1.47); MONOCYTES PERCENT AUTO 15 % (4-13); Mean Corpuscular HGB 32.9 pg (26.0-34.0); Mean Corpuscular HGB Conc 32.9 g/dL (31.5-36.5); Mean Corpuscular Volume 100 fL (80-100); Mean Platelet Volume 12.1 fL (9.1-12.4); NEUTROPHILS ABSOLUTE AUTO 4.38 K/mm3 (1.96-9.15); NEUTROPHILS PERCENT AUTO 67 % (41-73); Platelet Count 199 K/mm3 (150-400); RDW Coefficient Variation 14.2 % (11.7-14.2); RDW Standard Deviation 52.4 fL (35.1-46.3); Red Blood Cell Count 3.37 M/mm3 (3.80-5.20); White Blood Cell Count 6.57 K/mm3 (4.00-11.30)
[2023-06-21 05:47] LABS: Albumin, Blood 1.6 g/dL (3.4-5.0); Albumin/Globulin Ratio 0.4 (0.8-1.8); Bilirubin, Total 0.3 mg/dL (0.1-1.0); Bun/Creatinine Ratio 25.7 (12.0-20.0); Calcium, Blood 8.3 mg/dL (8.5-10.1); Creatinine, Blood 0.39 mg/dL (0.40-1.00); Globulin, Blood 4.3 g/dL (2.2-4.0); Potassium, Blood 3.8 mmol/L (3.5-5.5); Total Protein, Blood 5.9 g/dL (6.4-8.2)
[2023-06-21 07:50] VITALS: BP 113/63
[2023-06-21 15:32] VITALS: BP 137/53
--- NOTE | 2023-06-21 16:32 | NUR ---
SHIFT SUMMARY PATIENT IS ALERT AND ORIENTED. PATIENT HAS HAD NO ACUTE EVENTS THIS SHIFT. PATIENT HAS NOT COMPLAINED OF SOB OR VOMITTING THIS SHIFT. PATIENT HAS COMPLAINED OF NAUSEA AND PAIN THIS SHIFT. MEDICATED PER EMAR. PATIENT HAS BEEN IND IN ROOM THIS SHIFT. PATIENT WAS DOWNGRADED FROM MECHANICAL SOFT DIET TO FULL LIQUIDS AFTER NOT TOLERATING SOLID FOOD DIET WELL. BED IN LOCKED AND LOWEST POSITION. CALL LIGHT IN PLACE WILL MONITOR UNTIL SHIFT CHANGE.
--- NOTE | 2023-06-22 04:17 | NUR ---
END OF SHIFT SUMMARY UNEVENTFUL NIGHT. PT SLEPT WELL, ONLY WAKING UP FOR SCHEDULED MEDICATIONS. PT ABLE TO MAKE NEEDS KNOWN. PT AMBULATES WITH 1P ASSIST FWW, PT CONTINENT OF B/B. PT TOLERATING FULL LIQUID DIET. L UPPER ARM HAS A PICC LINE THAT FLUSHES WELL. CLUSTERED CARE TO LET PT SLEEP DURING THE NIGHT. CALL LIGHT WITHIN REACH, WCTM.
[2023-06-22 04:40] VITALS: BP 131/57
[2023-06-22 07:32] VITALS: BP 113/64
[2023-06-22] MEDS ORDERED: ONDA4 PO (11:15)
--- NOTE | 2023-06-22 13:24 | NUR ---
DISCHARGE SUMMARY PATIENT IS ALERT AND ORIENTED. PATIENT HAS HAD NO ACUTE EVENTS THIS SHIFT. PATIENT HAS BEEN MEDICATED FOR PAIN. PATIENT HAS NOT HAD AND COMPLAINTS OF SOB, NAUSEA OR VOMITTING THIS SHIFT. VITAL SIGNS REVIEWED. PATIENT IS BEING DISCHARGED HOME WITH TRANSPORTING.
== END 2023-06-22 13:06 | disposition home or self-care (01) | DRG 440 ==
LOC: ER 08:49 → MEDS 11:45
PROVIDERS: Emergency Medicine; Hospitalist; ADMIT Internal Medicine
PROC: 02HV33Z Insertion of Infusion Device into Superior Vena Cava, Percutaneous Approach (ICD-10-PCS; principal; 2023-06-17)
PROC: 3E0336Z Introduction of Nutritional Substance into Peripheral Vein, Percutaneous Approach (ICD-10-PCS; 2023-06-17)
DX: K85.20 Alcohol induced acute pancreatitis without necrosis or infection (principal); I10 Essential (primary) hypertension; K21.9 Gastro-esophageal reflux disease without esophagitis; K44.9 Diaphragmatic hernia without obstruction or gangrene; I25.10 Atherosclerotic heart disease of native coronary artery without angina pectoris; G47.33 Obstructive sleep apnea (adult) (pediatric); J44.9 Chronic obstructive pulmonary disease, unspecified; E03.9 Hypothyroidism, unspecified; K86.89 Other specified diseases of pancreas; E78.5 Hyperlipidemia, unspecified; F10.10 Alcohol abuse, uncomplicated; B19.20 Unspecified viral hepatitis C without hepatic coma; E83.51 Hypocalcemia; Z88.0 Allergy status to penicillin; Z90.710 Acquired absence of both cervix and uterus; Z85.3 Personal history of malignant neoplasm of breast; Z87.891 Personal history of nicotine dependence; Z98.890 Other specified postprocedural states; Z90.89 Acquired absence of other organs; Z91.038 Other insect allergy status; Z88.5 Allergy status to narcotic agent; Z79.899 Other long term (current) drug therapy; Z79.82 Long term (current) use of aspirin; Z79.891 Long term (current) use of opiate analgesic; Z98.49 Cataract extraction status, unspecified eye; Z79.51 Long term (current) use of inhaled steroids; Z79.52 Long term (current) use of systemic steroids; Z79.811 Long term (current) use of aromatase inhibitors
CPT/HCPCS: 36415; 36416; 71046; 74177; 76705; 80053; 81001; 82947; 83690; 83735; 84100; 84134; 84443; 84478; 85025; 94640; 94664; 94760; 96361; 96374-59; 96375; 99285-25; A9270; C9113; J1170; J1650; J1885; J1956; J2185; J2405; J2765; J3411; J7030; J7042; J7050; J7060; Q9967

== ENCOUNTER 2023-09-14 05:49 | Day surgery (SDC) | payer MEDICARE, OTHER ==
[~2023-09-14] VITALS: Ht 165.1 cm; Wt 74.5 kg
[2023-09-14] VITALS (14 sets, daily range): BP systolic 121–158; BP diastolic 59–87
[~2023-09-14 05:49] MED LIST changes: +FISH OIL 1,0001 EA10 PO; +MELATONIN5 M1 PO; +NITR.4SL SL; +ONDA4 PO
--- NOTE | 2023-09-14 11:13 | NUR ---
DISCHARGE NOTE PT A&OX4, BREATHING RA, AT BEDSIDE. PT BREATHING EVENLY AND UNLABORED. PT EXPERIENCED N/V DURING STEP DOWN, WAS MEDICATED PER DR NEWBERRY VS, PT REPORTS NAUSEA FEELING BETTER UPON DISCHARGE AND ALSO STATED SHE HAS NAUSEA MEDICATION AT HOME. AT 1025 BLOODY DRAINAGE WAS NOTED ON THE LOWER MIDLINE LAP SITE C REDDISH SMALL BULDGE APPEARING FROM THE INCISION. AT 1038 DR EVERETT EVALUATED INCISION AND SAID TO USE BAINDAIDS UNTIL DRAINIGE STOPPED. BANDAIDS TO DRESSINGS WERE CHANGED TWICE WHILE IN DSU. PT SENT HOME WITH ADDITIONAL BANDAIDS. PT VSS. PT WAS ABLE TO EAT A SMALL SNACK AND TOLERATE SOME PO FLUIDS PRIOR TO DISCHARGE. Discharge instructions reviewed with patient. Patient verbalizes understanding. Copy given to patient to take home. Dressing to procedure site clean, dry, intact with no visible drainage, swelling, erythema or bruising noted IN OTHER THREE LAP SITES. NO OTHER CONCERNS. Discharged via wheelchair to private car for ride home.
== END 2023-09-14 11:10 | disposition home or self-care (01) ==
LOC: ORSCMMR 05:49 → ORD 07:30 → ORSCMMR 11:10
DX: K82.4 Cholesterolosis of gallbladder (principal); Z87.19 Personal history of other diseases of the digestive system; K21.9 Gastro-esophageal reflux disease without esophagitis; J45.909 Unspecified asthma, uncomplicated; G47.33 Obstructive sleep apnea (adult) (pediatric); I10 Essential (primary) hypertension; Z86.19 Personal history of other infectious and parasitic diseases; Z85.3 Personal history of malignant neoplasm of breast; E03.9 Hypothyroidism, unspecified; E78.5 Hyperlipidemia, unspecified; Z79.82 Long term (current) use of aspirin; Z79.899 Other long term (current) drug therapy
CPT/HCPCS: 74300; 88304; A9270; C1729; J1100; J1790; J1885; J2250; J2270; J2405; J2704; J2710; J2765; J3010; J7120

== ENCOUNTER 2023-11-23 22:34 | Inpatient (IN) | payer MEDICARE, OTHER ==
[~2023-11-23] VITALS: Ht 165.1 cm; Wt 74.3 kg
[~2023-11-23 22:34] MED LIST changes: +LEVSOD137 PO; -Synthroid175 MCG PO
[2023-11-23] MEDS ORDERED: DOXY100 PO (22:56)
[2023-11-23] MEDS ORDERED: Hydroxyzine HCl50 MG PO (22:57)
[2023-11-23 23:07] LABS: BASOPHILS ABSOLUTE AUTO 0.05 K/mm3 (0.00-0.23); BASOPHILS PERCENT AUTO 1 % (0-2); EOSINOPHILS ABSOLUTE AUTO 0.12 K/mm3 (0.00-0.68); EOSINOPHILS PERCENT AUTO 2 % (0-6); Hematocrit 44.1 % (33.0-51.0); Hemoglobin 14.9 g/dL (11.5-16.0); IMMATURE GRAN ABSOLUTE AUTO 0.03 K/mm3 (0.00-0.10); IMMATURE GRAN PERCENT AUTO 1 % (0-1); LYMPHOCYTES ABSOLUTE AUTO 1.77 K/mm3 (0.84-5.20); LYMPHOCYTES PERCENT AUTO 27 % (21-46); MONOCYTES ABSOLUTE AUTO 0.59 K/mm3 (0.16-1.47); MONOCYTES PERCENT AUTO 9 % (4-13); Mean Corpuscular HGB 33.1 pg (26.0-34.0); Mean Corpuscular HGB Conc 33.8 g/dL (31.5-36.5); Mean Corpuscular Volume 98 fL (80-100); Mean Platelet Volume 11.9 fL (9.1-12.4); NEUTROPHILS PERCENT AUTO 60 % (41-73); Platelet Count 166 K/mm3 (150-400); RDW Coefficient Variation 12.3 % (11.7-14.2); RDW Standard Deviation 44.8 fL (35.1-46.3); White Blood Cell Count 6.46 K/mm3 (4.00-11.30)
[2023-11-23 23:42] LABS: Albumin, Blood 3.1 g/dL (3.4-5.0); Albumin/Globulin Ratio 0.7 (0.8-1.8); Bilirubin, Total 0.4 mg/dL (0.1-1.0); Bun/Creatinine Ratio 28.4 (12.0-20.0); Calcium, Blood 8.8 mg/dL (8.5-10.1); Creatinine, Blood 0.42 mg/dL (0.40-1.00); Globulin, Blood 4.4 g/dL (2.2-4.0); Potassium, Blood 3.4 mmol/L (3.5-5.5); Total Protein, Blood 7.5 g/dL (6.4-8.2)
[2023-11-24 04:05] LABS: CHOL/HDL RATIO 12.6; Cholesterol 177 mg/dL (50-200); HDL Cholesterol 14 mg/dL (>39); LDL/HDL RATIO 10.4; Low Density Lipoprotein Chol 145 mg/dL (0-110); Triglycerides 89 mg/dL (30-160); Very Low Density Lipoprot Chol 17 mg/dL (6-32)
[2023-11-24 04:38] LABS: BASOPHILS ABSOLUTE AUTO 0.05 K/mm3 (0.00-0.23); BASOPHILS PERCENT AUTO 1 % (0-2); EOSINOPHILS ABSOLUTE AUTO 0.13 K/mm3 (0.00-0.68); EOSINOPHILS PERCENT AUTO 2 % (0-6); Hematocrit 38.1 % (33.0-51.0); IMMATURE GRAN ABSOLUTE AUTO 0.02 K/mm3 (0.00-0.10); IMMATURE GRAN PERCENT AUTO 0 % (0-1); LYMPHOCYTES ABSOLUTE AUTO 1.67 K/mm3 (0.84-5.20); LYMPHOCYTES PERCENT AUTO 28 % (21-46); MONOCYTES ABSOLUTE AUTO 0.72 K/mm3 (0.16-1.47); MONOCYTES PERCENT AUTO 12 % (4-13); Mean Corpuscular HGB 33.1 pg (26.0-34.0); Mean Corpuscular HGB Conc 34.1 g/dL (31.5-36.5); Mean Corpuscular Volume 97 fL (80-100); Mean Platelet Volume 11.9 fL (9.1-12.4); NEUTROPHILS ABSOLUTE AUTO 3.43 K/mm3 (1.96-9.15); NEUTROPHILS PERCENT AUTO 57 % (41-73); Platelet Count 134 K/mm3 (150-400); RDW Coefficient Variation 12.5 % (11.7-14.2); Red Blood Cell Count 3.93 M/mm3 (3.80-5.20); White Blood Cell Count 6.02 K/mm3 (4.00-11.30)
[2023-11-24 05:23] VITALS: BP 143/74
[2023-11-24 05:29] LABS: Albumin, Blood 2.8 g/dL (3.4-5.0); Albumin/Globulin Ratio 0.8 (0.8-1.8); Bilirubin, Total 0.4 mg/dL (0.1-1.0); Bun/Creatinine Ratio 28.6 (12.0-20.0); Calcium, Blood 8.2 mg/dL (8.5-10.1); Creatinine, Blood 0.42 mg/dL (0.40-1.00); Globulin, Blood 3.7 g/dL (2.2-4.0); Potassium, Blood 3.2 mmol/L (3.5-5.5); Total Protein, Blood 6.5 g/dL (6.4-8.2)
--- NOTE | 2023-11-24 06:09 | NUR ---
ARRIVAL TO UNIT AFTER RECEIVING REPORT FROM NATY GIVENS, PATIENT TRANSFERRED TO UNIT VIA ED [facility] AT APPROX 1915. PATIENT ABLE TO AMBULATE FROM ED [facility] TO HOSPITAL BED WITH MINIMAL ASSIST. USES CANE, FWW AT BASELINE FOR MOBILITY ASSIST DUE TO SPINAL INJURY AND CHRONIC BILATERAL KNEE PAIN. PATIENT WEARING BILATERAL KNEE BRACES. PERSONAL CANE WITH PATIENT. PATIENT AMBULATED TO RESTROOM WITH CANE. VOIDING. IS ALERT AND ORIENTED X4. REPORTS 6/10 R UPPER ABDOMINAL PAIN, REPORTS THAT IT IS TOLERABLE AT THIS TIME. PER NATY, PATIENT RECEIVED DOSE OF DILAUDID DUE AT 0400 PRIOR TO ARRIVAL. NATY RN IS UNABLE TO CHART ADMINISTRATION DUE TO COMPUTER ERROR. THIS RN UNABLE TO DOCUMENT ON SCHEDULED DOSE OF DILAUDID COMPUTER ERROR STATES THAT NATY IS CURRENTLY DOCUMENTING ON MEDICATION. ABDOMEN IS SOFT, TENDER TO PALPATION, ESPECIALLY IN R UPPER QUADRANT. NORMOACTIVE BOWEL TONES. REPORT MILD NAUSEA, NO VOMITING. TELEMETRY SHOWING SINUS 60's. DENIES CHEST PAIN, PRESSURE. BP STABLE. DOES REPORT MILD SHORTNESS OF BREATH. IS ON ROOM AIR, SATS >90%. IVF INFUSING PER EMAR. CALL LIGHT IN REACH. WILL REPORT TO ONCCHUCK GIVENS.
[2023-11-24 06:58] VITALS: BP 144/64
--- NOTE | 2023-11-24 07:24 | NUR ---
Recieved report from Noc RN in room. Patient is awake and able to communicate her needs. She is on RA and sats >90% and denies any SOB. She is independent in bed with positioning for comfort and has call light within reach and uses it appropriately. CT called and is in route to take her to her CTA and patient has been told. Patient denies any current needs. She has 20ga IV to LLFA and has LR infusing at 125 ml/hr.
--- NOTE | 2023-11-24 12:43 | NUR ---
Patient has been resting in bed and calls appropriate. Medicated patient for pain and nausea. She has been up to bathroom withh assist with equipmemnt. Patient remains on RA and sats >90%. She has LR infusing at 125 ml/hr and Potassium at 50 ml/hr. She has been independnet in bed with positiomning. No real changes from am note. All am Med were IV and tolerated well.
[2023-11-24 12:48] VITALS: BP 162/68
[2023-11-24] MEDS ORDERED: BUTALB-ACETAMI1 EAC5 PO (14:17)
[2023-11-24] MEDS ORDERED: ATOR10 PO (14:17)
--- NOTE | 2023-11-24 15:30 | NUR ---
Patient has been resting. Family by for several hours Pastoral care by to see patient. Medicated for pain and nausea per JAN. She remains on RA and sats >90%. Remains independent with positioning in bed. Calls appropriately. LR continues at 125 ml/hr. Patient has been up to bathroom with SBA.
--- NOTE | 2023-11-24 16:04 | NUR ---
Spiritual care visit conducted. upon receiving a referral for spiritual care, I visited the patient. She talks about her medical history, the high quality of her RN Nirmal and the medical staff and the current plan of care moving forward. She shares about her Confucianism mary, her solid family and friend support and the emotionally rough days that she has at times. I normalize her feelings and fears, highlight her strengths and helpful attitudes and provide therapeutic listening, gentle apprise counselor, levity and prayer. She showed clear signs of being encouraged by conversation centered around the goodness of God and good comedic timing. I will continue to remain available to patient and family.
[2023-11-24 19:50] VITALS: BP 115/62
[2023-11-24 23:57] VITALS: BP 164/62
--- NOTE | 2023-11-25 00:58 | NUR ---
ASSUMPTION OF CARE AFTER RECEIVING REPORT FROM KORINA GIVENS, THIS RN ASSUMED CARE AT APPROX 1915. DURING INITIAL ENCOUNTER, PATIENT SLEEPING, EASILY AROUSABLE TO VERBAL STIMULI. IS ALERT AND ORIENTED X4. COOPERATIVE WITH CARE, RECEPTIVE TO EDUCATION. USES CALL LIGHT APPROPRIATELY. ABLE TO REPOSITION HERSELF IN BED INDEPENDENTLY. AMBULATES TO RESTROOM WITH CANE WITH STAND BY ASSIST FROM STAFF. PATIENT REPORTS 6/10 R UPPER QUADRANT PAIN THAT IS TOLERABLE AT THIS TIME. REPORTS MILD NAUSEA. PLAN TO MEDICATE PER EMAR FOR PAIN AND NAUSEA NEEDED. TELEMETRY SHOWING SINUS 70's. BP STABLE. DENIES CHEST PAIN, PRESSURE. RT AT BEDSIDE TO SET UP CPAP MACHINE TO USE WHILE SLEEPING. ON ROOM AIR WHILE AWAKE. CALL LIGHT IN REACH.
[2023-11-25 03:00] VITALS: BP 147/56
--- NOTE | 2023-11-25 05:33 | NUR ---
SHIFT SUMMARY NO ACUTE CHANGES SINCE ASSUMPTION OF CARE NOTE. PATIENT SLEPT PERIODICALLY THROUGHOUT SHIFT WITH CPAP IN PLACE, SATS >90%. REMAINS EASILY AROUSABLE TO VERBAL STIMULI. TELEMETRY SHOWING SINUS 70's. BP STABLE. MANAGING R UPPER QUADRANT PAIN AND NAUSEA PER EMAR WITH IV DILAUDID AND IV COMPAZINE. PATIENT ABLE TO REPOSITION HERSELF INDEPENDENTLY IN BED. USES CALL LIGHT FOR ASSISTANCE TO RESTROOM. VOIDING. CALL LIGHT IN REACH. WILL REPORT TO ONCOMING RN.
[2023-11-25 05:38] LABS: BASOPHILS ABSOLUTE AUTO 0.05 K/mm3 (0.00-0.23); BASOPHILS PERCENT AUTO 1 % (0-2); EOSINOPHILS PERCENT AUTO 4 % (0-6); Hematocrit 36.7 % (33.0-51.0); Hemoglobin 12.4 g/dL (11.5-16.0); IMMATURE GRAN ABSOLUTE AUTO 0.01 K/mm3 (0.00-0.10); IMMATURE GRAN PERCENT AUTO 0 % (0-1); LYMPHOCYTES ABSOLUTE AUTO 1.02 K/mm3 (0.84-5.20); LYMPHOCYTES PERCENT AUTO 21 % (21-46); MONOCYTES ABSOLUTE AUTO 0.61 K/mm3 (0.16-1.47); MONOCYTES PERCENT AUTO 13 % (4-13); Mean Corpuscular HGB Conc 33.8 g/dL (31.5-36.5); Mean Corpuscular Volume 98 fL (80-100); Mean Platelet Volume 12.3 fL (9.1-12.4); NEUTROPHILS ABSOLUTE AUTO 2.93 K/mm3 (1.96-9.15); NEUTROPHILS PERCENT AUTO 61 % (41-73); Platelet Count 124 K/mm3 (150-400); RDW Coefficient Variation 12.5 % (11.7-14.2); RDW Standard Deviation 45.1 fL (35.1-46.3); Red Blood Cell Count 3.76 M/mm3 (3.80-5.20); White Blood Cell Count 4.82 K/mm3 (4.00-11.30)
[2023-11-25 06:45] LABS: Albumin, Blood 2.6 g/dL (3.4-5.0); Albumin/Globulin Ratio 0.8 (0.8-1.8); Bilirubin, Total 0.4 mg/dL (0.1-1.0); Bun/Creatinine Ratio 19.2 (12.0-20.0); Calcium, Blood 8.7 mg/dL (8.5-10.1); Creatinine, Blood 0.37 mg/dL (0.40-1.00); Globulin, Blood 3.3 g/dL (2.2-4.0); Potassium, Blood 3.3 mmol/L (3.5-5.5); Total Protein, Blood 5.9 g/dL (6.4-8.2)
[2023-11-25 07:36] VITALS: BP 139/74
[2023-11-25 12:23] VITALS: BP 145/67
[2023-11-25 14:33] VITALS: BP 145/67
--- NOTE | 2023-11-25 14:39 | NUR ---
PT ARIIVED @1440 VSS, LUNG SOUNDS CLEAR, DIM IN BASES. TOLERATING PO INTAKE. AOX4, SBA TO IND IN ROOM USES CANE. ORIENTED TO CALL LIGHT.
--- NOTE | 2023-11-25 15:19 | NUR ---
TRANSFER OF CARE PT TRANSFER TO SURGICAL UNIT AT APPROX 1430. PT AOX4 VSS. PT MEDICATED PER EMAR FOR RUQ PAIN AND NAUSEA, SEE EMAR. PT DENIES CHEST PAIN/PPRESSURE. ORDERS GIVEN PER TO ADVANCE DIET TOLERATED. NO ACUTE CHANGES.
[2023-11-25 19:24] VITALS: BP 137/56
[2023-11-26 04:36] VITALS: BP 144/67
--- NOTE | 2023-11-26 06:01 | NUR ---
SHIFT SUMMARY PT IS HERE WITH PANCREATITIS. PT WAS ABLE TO SLEEP FOR MOST OF THE NIGHT WITH HER CPAP ON AND WAS GIVEN ANTI-NAUSEA AND PAIN MEDICATION TOWARDS THE END OF THE SHIFT (PT TAKEN OVER BY THIS RN AROUND 2300 ON 11/25/23). NO ACUTE EVENTS OCCURRING OVERNIGHT. BED IS IN LOWEST POSITION, CALL LIGHT IS WITHIN REACH.
[2023-11-26 07:03] LABS: Albumin, Blood 2.7 g/dL (3.4-5.0); Albumin/Globulin Ratio 0.8 (0.8-1.8); Bilirubin, Total 0.4 mg/dL (0.1-1.0); Bun/Creatinine Ratio 9.9 (12.0-20.0); Calcium, Blood 8.8 mg/dL (8.5-10.1); Creatinine, Blood 0.4 mg/dL (0.40-1.00); Globulin, Blood 3.6 g/dL (2.2-4.0); Potassium, Blood 3.3 mmol/L (3.5-5.5); Total Protein, Blood 6.3 g/dL (6.4-8.2)
[2023-11-26 07:10] VITALS: BP 138/60
--- NOTE | 2023-11-26 09:00 | NUR ---
PT PLEASANT COOP A/O X3, TALKATIVE. STATES SOME ABD PAIN, 6. MED TO BRING TO 5 PER EMAR. H/R REG, NO MURMUR NOTED. NO TELE. LUNGS CLEAR, RESP EASY UNLABORED, ON R/A. ABD IS TENDER TO TOUCH. BT X4. LAST BM 2 DAYS PER PT. VOIDS IND TO BATHROOM. BED IN LOW POSITION, CALL LITE IN REACH, CALLS APPROP
[2023-11-26 14:42] VITALS: BP 144/58
[2023-11-26 14:56] LABS: HCV QNT BY NAAT (IU/ML) Not Detected; HCV QNT BY NAAT (LOG IU/ML) Not Detected; HCV QNT BY NAAT INTERP Not Detected (Not Detected)
--- NOTE | 2023-11-26 15:06 | NUR ---
pt admits to diarrhea started since last nite, and continues today. called dr. whiteside
--- NOTE | 2023-11-26 16:30 | NUR ---
SPOKE TO DR MEDEROS. RE DIARRHEA. STATES TO MAKE ORDERS FOR PT.
--- NOTE | 2023-11-26 17:28 | NUR ---
PT PLEASANT TODAY. STATES PAIN MANAGED WITH AVAIL MEDS. PT STATES HAS DEVELOPED DIARRHEA LAST NIGHT AND [address]CUSS[address] WITH [address] MEDEROS. HE TO PLACE ORDERS. PT WAS SEEN BY DR DUVAL, NO OTHER CONCERNS NOTED TODAY. BED IN LOW POSITION, CALL LITE IN REACH, CALLS APPROP
[2023-11-26 19:24] VITALS: BP 140/57
[2023-11-27 04:34] VITALS: BP 136/59
--- NOTE | 2023-11-27 06:25 | NUR ---
SHIFT SUMMARY PT IS HERE FOR MANAGEMENT OF PANCREATITIS. PER PT REQUEST, ASKED MD ABOUT ORDERING THE PT'S NIGHTLY HOME DOSE OF ATARAX, WHICH WAS GIVEN LATER IN THE EVENING. PAIN MEDICATION AND ANTI-NAUSEA MEDICATION GIVEN A COUPLE TIMES THROUGHOUT THE SHIFT. NO ACUTE EVENTS OVERNIGHT, VITAL SIGNS HAVE BEEN STABLE. BED IS IN LOWEST POSITION, CALL LIGHT IS WITHIN REACH.
[2023-11-27 07:01] VITALS: BP 131/63
[2023-11-27 08:47] LABS: Bun/Creatinine Ratio 5.3 (12.0-20.0); Calcium, Blood 8.9 mg/dL (8.5-10.1); Creatinine, Blood 0.38 mg/dL (0.40-1.00); Potassium, Blood 3.2 mmol/L (3.5-5.5)
[2023-11-27] MEDS ORDERED: PROM25 PO (14:12)
[2023-11-27] MEDS ORDERED: POTCHL20ER PO (14:13)
--- NOTE | 2023-11-27 14:36 | NUR ---
DISCHARGE NOTE: PATIENT WAS EDUCATED ON DISCHARGE INSTRUCTIONS. SHE VERBALIZED UNDERSTANDING OF INSTRUCTIONS AND HAD NO FURTHER QUESTIONS AT THIS TIME. HER HARD PERSCRIPTION AND HER LAB DRAW PERSCRIPTION WERE PLACED IN HER DISCHARGE FOLDER. HER OTHER PERSCRIPTIONS WERE FAXED TO [facility]. PAIN IS MANAGED WITH PO PAIN MEDS. HER NAUSEA IS MANAGED WITH PO PHENERGAN. PATIENT IS TOLERATING PO INTAKE, VOIDING, AND PASSING GAS/HAVING BMS. SHE IS INDEP. IN THE ROOM. PATIENT IS DRESSED AND HAS PERSONAL ITEMS IN THE ROOM GATHERED. PATIENT WAS WHEELCHAIRED OUT TO HER HUSBANDS CAR TO BE TAKEN HOME.
[2023-11-28 11:34] LABS: HIV 1,2 COMBO ANTIGEN/ANTIBODY Negative (Negative)
== END 2023-11-27 14:41 | disposition home or self-care (01) | DRG 439 ==
LOC: ER 22:34 → PCU 11-24 03:07 → SURS 11-25 14:31
PROVIDERS: Emergency Medicine; Family Medicine; Student in an Organized Health Care Education/Training Program; ADMIT Student in an Organized Health Care Education/Training Program
DX: K85.90 Acute pancreatitis without necrosis or infection, unspecified (principal); K86.3 Pseudocyst of pancreas; R04.2 Hemoptysis; E87.6 Hypokalemia; R94.31 Abnormal electrocardiogram [ECG] [EKG]; R07.89 Other chest pain; E78.5 Hyperlipidemia, unspecified; I10 Essential (primary) hypertension; J44.9 Chronic obstructive pulmonary disease, unspecified; K44.9 Diaphragmatic hernia without obstruction or gangrene; K21.9 Gastro-esophageal reflux disease without esophagitis; B19.20 Unspecified viral hepatitis C without hepatic coma; E03.9 Hypothyroidism, unspecified; E86.0 Dehydration; I25.10 Atherosclerotic heart disease of native coronary artery without angina pectoris; G43.909 Migraine, unspecified, not intractable, without status migrainosus; D69.6 Thrombocytopenia, unspecified; J40 Bronchitis, not specified as acute or chronic; G47.33 Obstructive sleep apnea (adult) (pediatric); Z90.49 Acquired absence of other specified parts of digestive tract; Z93.3 Colostomy status; Z90.89 Acquired absence of other organs; Z90.710 Acquired absence of both cervix and uterus; Z91.038 Other insect allergy status; Z88.0 Allergy status to penicillin; Z88.5 Allergy status to narcotic agent; Z79.899 Other long term (current) drug therapy; Z79.2 Long term (current) use of antibiotics; Z79.890 Hormone replacement therapy; Z79.51 Long term (current) use of inhaled steroids; Z79.82 Long term (current) use of aspirin; Z92.21 Personal history of antineoplastic chemotherapy; Z92.3 Personal history of irradiation; Z79.891 Long term (current) use of opiate analgesic; Z98.890 Other specified postprocedural states; Z87.891 Personal history of nicotine dependence; Z85.3 Personal history of malignant neoplasm of breast
CPT/HCPCS: 36415; 71046; 71260; 74177; 80048; 80053; 80061; 83605; 83615; 83690; 83735; 84132; 84484; 85025; 85379; 87522; 93005; 93010; 94640; 94660; 94664; 94760; 94762; 96361; 96374-59; 96375; 99285-25; A9270; C9113; J0780; J1170; J1644; J2270; J2405; J3480; J7050; J7120; Q9967

== ENCOUNTER → 2023-11-28 | Outpatient (CLI) | payer MEDICARE, OTHER ==
[~2023-11-28] MED LIST changes: +ATOR10 PO; +BUTALB-ACETAMI1 EAC5 PO; +DOXY100 PO; +Hydroxyzine HCl50 MG PO; +POTCHL20ER PO; +PROM25 PO
[2023-11-28 10:59] LABS: Bun/Creatinine Ratio 14.1 (12.0-20.0); Calcium, Blood 9.5 mg/dL (8.5-10.1); Creatinine, Blood 0.78 mg/dL (0.40-1.00); Potassium, Blood 4.5 mmol/L (3.5-5.5)
== END | disposition home or self-care (01) ==
LOC: LAB SHORT 09:57 → LAB 09:57
PROVIDERS: Hospitalist
DX: E87.6 Hypokalemia (principal)
CPT/HCPCS: 80048

== ENCOUNTER 2025-02-07 10:42 | Emergency (ER) | payer MEDICARE, OTHER ==
[~2025-02-07] VITALS: Ht 165.1 cm; Wt 89.4 kg
[2025-02-07] MEDS ORDERED: Promethazine HCl 25 MG Tab PO ONE (11:05)
[2025-02-07 11:38] LABS: BASOPHILS ABSOLUTE AUTO 0.07 K/mm3 (0.00-0.23); BASOPHILS PERCENT AUTO 2 % (0-2); EOSINOPHILS ABSOLUTE AUTO 0.18 K/mm3 (0.00-0.68); EOSINOPHILS PERCENT AUTO 5 % (0-6); Hematocrit 41.2 % (33.0-51.0); Hemoglobin 14.1 g/dL (11.5-16.0); IMMATURE GRAN ABSOLUTE AUTO 0.03 K/mm3 (0.00-0.10); IMMATURE GRAN PERCENT AUTO 1 % (0-1); LYMPHOCYTES ABSOLUTE AUTO 1.53 K/mm3 (0.84-5.20); LYMPHOCYTES PERCENT AUTO 40 % (21-46); MONOCYTES ABSOLUTE AUTO 0.52 K/mm3 (0.16-1.47); MONOCYTES PERCENT AUTO 14 % (4-13); Mean Corpuscular HGB 34.2 pg (26.0-34.0); Mean Corpuscular HGB Conc 34.2 g/dL (31.5-36.5); Mean Corpuscular Volume 100 fL (80-100); Mean Platelet Volume 12.4 fL (9.1-12.4); NEUTROPHILS ABSOLUTE AUTO 1.48 K/mm3 (1.96-9.15); NEUTROPHILS PERCENT AUTO 39 % (41-73); Platelet Count 148 K/mm3 (150-400); RDW Coefficient Variation 12.5 % (11.7-14.2); RDW Standard Deviation 46.3 fL (35.1-46.3); Red Blood Cell Count 4.12 M/mm3 (3.80-5.20); White Blood Cell Count 3.81 K/mm3 (4.00-11.30)
[2025-02-07 11:57] LABS: Albumin, Blood 3.2 g/dL (3.4-5.0); Albumin/Globulin Ratio 0.8 (0.8-1.8); Bilirubin, Total 0.5 mg/dL (0.1-1.0); Bun/Creatinine Ratio 23.9 (12.0-20.0); Calcium, Blood 8.1 mg/dL (8.5-10.1); Creatinine, Blood 0.54 mg/dL (0.40-1.00); Potassium, Blood 3.5 mmol/L (3.5-5.5); Total Protein, Blood 7.2 g/dL (6.4-8.2)
[2025-02-07] MEDS ORDERED: Ketorolac Tromethamine 15mg Vial IV ONE (12:25)
[2025-02-07] MEDS ORDERED: PROM25 PO (12:27)
[2025-02-07 12:43] VITALS: BP 140/66
== END 2025-02-07 12:52 | disposition home or self-care (01) ==
LOC: ER 10:42
PROVIDERS: Emergency Medicine
DX: R51.9 Headache, unspecified (principal); R42 Dizziness and giddiness; I10 Essential (primary) hypertension; J45.909 Unspecified asthma, uncomplicated; K21.9 Gastro-esophageal reflux disease without esophagitis; G47.33 Obstructive sleep apnea (adult) (pediatric); E78.5 Hyperlipidemia, unspecified; Z88.0 Allergy status to penicillin; Z88.5 Allergy status to narcotic agent; Z91.030 Bee allergy status; Z79.899 Other long term (current) drug therapy; Z87.891 Personal history of nicotine dependence
CPT/HCPCS: 70450; 80053; 84484; 85025; 93005; 93010; 96374; 99284-25; A9270; J1885

== ENCOUNTER 2025-02-09 15:24 | Emergency (ER) | payer MEDICARE, OTHER ==
[~2025-02-09] VITALS: Ht 165.1 cm; Wt 64.4 kg
[2025-02-09 16:31] LABS: Magnesium, Blood 1.8 mg/dL (1.6-2.4)
[2025-02-09 16:32] LABS: Albumin, Blood 3.5 g/dL (3.4-5.0); Albumin/Globulin Ratio 0.8 (0.8-1.8); Bilirubin, Total 0.7 mg/dL (0.1-1.0); Calcium, Blood 8.6 mg/dL (8.5-10.1); Creatinine, Blood 0.5 mg/dL (0.40-1.00); Globulin, Blood 4.5 g/dL (2.2-4.0); Potassium, Blood 3.9 mmol/L (3.5-5.5)
[2025-02-09 17:52] LABS: BASOPHILS ABSOLUTE AUTO 0.07 K/mm3 (0.00-0.23); BASOPHILS PERCENT AUTO 2 % (0-2); EOSINOPHILS ABSOLUTE AUTO 0.16 K/mm3 (0.00-0.68); EOSINOPHILS PERCENT AUTO 4 % (0-6); Hematocrit 44.5 % (33.0-51.0); Hemoglobin 14.9 g/dL (11.5-16.0); IMMATURE GRAN ABSOLUTE AUTO 0.01 K/mm3 (0.00-0.10); IMMATURE GRAN PERCENT AUTO 0 % (0-1); LYMPHOCYTES ABSOLUTE AUTO 1.59 K/mm3 (0.84-5.20); LYMPHOCYTES PERCENT AUTO 35 % (21-46); MONOCYTES ABSOLUTE AUTO 0.55 K/mm3 (0.16-1.47); MONOCYTES PERCENT AUTO 12 % (4-13); Mean Corpuscular HGB 33.9 pg (26.0-34.0); Mean Corpuscular HGB Conc 33.5 g/dL (31.5-36.5); Mean Corpuscular Volume 101 fL (80-100); Mean Platelet Volume 12.2 fL (9.1-12.4); NEUTROPHILS ABSOLUTE AUTO 2.16 K/mm3 (1.96-9.15); NEUTROPHILS PERCENT AUTO 48 % (41-73); Platelet Count 164 K/mm3 (150-400); RDW Coefficient Variation 12.6 % (11.7-14.2); RDW Standard Deviation 47.1 fL (35.1-46.3); White Blood Cell Count 4.54 K/mm3 (4.00-11.30)
[2025-02-09] MEDS ORDERED: Metoclopramide HCl 5MG / ML 2ML Vial IV ONE (20:10)
[2025-02-09] MEDS ORDERED: Ketorolac Tromethamine 30mg Vial IV ONE (20:10)
[2025-02-09] MEDS ORDERED: DiphenhydrAMINE HCl 50 MG/ML 1ML Vial IV ONE (20:10)
[2025-02-09] MEDS ORDERED: Meclizine HCl 25 MG Tab PO ONE (21:15)
[2025-02-09] MEDS ORDERED: MOTION RELIEF25 MG PO (21:16)
[2025-02-09 21:30] VITALS: BP 136/56
== END 2025-02-09 22:01 | disposition home or self-care (01) ==
LOC: ER 15:24
PROVIDERS: Emergency Medicine
DX: G43.909 Migraine, unspecified, not intractable, without status migrainosus (principal); I10 Essential (primary) hypertension; J45.909 Unspecified asthma, uncomplicated; K21.9 Gastro-esophageal reflux disease without esophagitis; G47.33 Obstructive sleep apnea (adult) (pediatric); E78.5 Hyperlipidemia, unspecified; Z87.891 Personal history of nicotine dependence; Z91.030 Bee allergy status; Z88.0 Allergy status to penicillin; Z88.5 Allergy status to narcotic agent; Z79.899 Other long term (current) drug therapy
CPT/HCPCS: 36415; 70450; 80053; 83735; 85025; 96374; 96375; 99284-25; A9270; J1200; J1885; J2765

== ENCOUNTER 2025-03-07 12:18 | Inpatient (IN) | payer MEDICARE, OTHER ==
[~2025-03-07] VITALS: Ht 165.1 cm; Wt 65.4 kg
[~2025-03-07 12:18] MED LIST changes: +MOTION RELIEF25 MG PO
[2025-03-07] MEDS ORDERED: Ondansetron HCl 2 MG / ML 2ML Vial IV ONE (12:45)
[2025-03-07] MEDS ORDERED: Nitroglycerin 0.4 MG SUBL SL PRN ×2 (12:45→18:45)
[2025-03-07 13:01] LABS: BASOPHILS ABSOLUTE AUTO 0.06 K/mm3 (0.00-0.23); BASOPHILS PERCENT AUTO 2 % (0-2); EOSINOPHILS ABSOLUTE AUTO 0.13 K/mm3 (0.00-0.68); EOSINOPHILS PERCENT AUTO 4 % (0-6); Hematocrit 39.5 % (33.0-51.0); Hemoglobin 13.4 g/dL (11.5-16.0); IMMATURE GRAN PERCENT AUTO 0 % (0-1); LYMPHOCYTES ABSOLUTE AUTO 0.92 K/mm3 (0.84-5.20); LYMPHOCYTES PERCENT AUTO 27 % (21-46); MONOCYTES PERCENT AUTO 9 % (4-13); Mean Corpuscular HGB 33.8 pg (26.0-34.0); Mean Corpuscular HGB Conc 33.9 g/dL (31.5-36.5); Mean Corpuscular Volume 100 fL (80-100); Mean Platelet Volume 11.6 fL (9.1-12.4); NEUTROPHILS ABSOLUTE AUTO 2.02 K/mm3 (1.96-9.15); NEUTROPHILS PERCENT AUTO 59 % (41-73); Platelet Count 148 K/mm3 (150-400); RDW Coefficient Variation 12.8 % (11.7-14.2); RDW Standard Deviation 47.3 fL (35.1-46.3); Red Blood Cell Count 3.97 M/mm3 (3.80-5.20); White Blood Cell Count 3.43 K/mm3 (4.00-11.30)
[2025-03-07 13:19] LABS: Albumin, Blood 3.1 g/dL (3.4-5.0); Albumin/Globulin Ratio 0.9 (0.8-1.8); Bilirubin, Total 0.3 mg/dL (0.1-1.0); Bun/Creatinine Ratio 27.9 (12.0-20.0); Creatinine, Blood 0.54 mg/dL (0.40-1.00); Globulin, Blood 3.6 g/dL (2.2-4.0); Potassium, Blood 3.7 mmol/L (3.5-5.5); Total Protein, Blood 6.7 g/dL (6.4-8.2)
[2025-03-07 14:11] LABS: Source, Urine Clean Catch
[2025-03-07 14:18] LABS: Appearance, Urine Clear (Clear); Bilirubin, Urine Neg (Neg); Blood, Urine 3+ (Neg); Color, Urine Yellow (P-Yellow); Glucose Qualitative, Urine Neg (Neg); Ketones, Urine Neg (Neg); Leukocyte Esterase, Urine 2+ (Neg); Nitrite, Urine Neg (Neg); Protein, Urine 2+ (Neg); Urobilinogen, Urine NORM (Normal)
[2025-03-07 14:32] LABS: Bacteria Many /hpf; Mucus Mod (0-Heavy); Red Blood Cells, Urine 0-2 /hpf (0-2); Squamous Epithelial Cells Few /hpf (Few)
[2025-03-07] MEDS ORDERED: Midazolam HCl 1MG / ML 2ML Vial IV ONE (15:10)
[2025-03-07] MEDS ORDERED: Ciprofloxacin 400MG/D5 200ML 200 ML IV ONE (15:10)
[2025-03-07] MEDS ORDERED: FentaNYL Citrate 50 MCG/ML 2 ML Injection IV ONE (15:10)
[2025-03-07] MEDS ORDERED: Mag Hydrox/AL Hydrox/Simeth 30 ML UDC PO ONE (15:15)
[2025-03-07] MEDS ORDERED: Lidocaine 2% Viscous Soln 15 ML UDC PO ONE (15:15)
[2025-03-07] MEDS ORDERED: NS 1,000 ML IV SCH (17:30)
[2025-03-07] MEDS ORDERED: Meclizine HCl 25 MG Tab PO PRN (17:30)
[2025-03-07] MEDS ORDERED: Ondansetron HCl 2 MG / ML 2ML Vial IV PRN (17:35)
[2025-03-07] MEDS ORDERED: NS 1,000 ML IV ONE (17:50)
[2025-03-07] MEDS ORDERED: Albuterol 2.5 MG/3 ML VIAL INH PRN (18:40)
[2025-03-07] MEDS ORDERED: Acetaminophen 325 MG TABLET PO PRN (18:40)
[2025-03-07] MEDS ORDERED: Pantoprazole Sodium 40 MG Tab PO ONE ×2 (18:40→22:50)
[2025-03-07] MEDS ORDERED: LIPITOR80 MG PO (19:03)
[2025-03-07] MEDS ORDERED: METOPROLOL SUCC25 MG PO (19:03)
[2025-03-07] MEDS ORDERED: FLUOXETINE HCL20 M2 PO (19:04)
[2025-03-07] MEDS ORDERED: ISOSORBIDE MONO30 MG PO (19:04)
[2025-03-07] MEDS ORDERED: CYCL10 PO (19:05)
[2025-03-07] MEDS ORDERED: CARVEDILOL3.125 MG PO (19:06)
[2025-03-07] MEDS ORDERED: AMLODIPINE BESYL5 MG PO (19:07)
[2025-03-07 20:00] VITALS: BP 119/89
[2025-03-07] MEDS ORDERED: MECL25 (20:20)
[2025-03-07] MEDS ORDERED: HYDROCODONE-AC1 EA10 (20:24)
[2025-03-07] MEDS ORDERED: ONDA4 PO (20:25)
[2025-03-07] MEDS ORDERED: FISH OIL 1,0001 EA10 PO (20:25)
[2025-03-07] MEDS ORDERED: HYDHCL25 (20:27)
[2025-03-07] MEDS ORDERED: BUTALB-ACETAMI1 EAC6 (20:28)
[2025-03-07] MEDS ORDERED: K-TAB ER20 ME1 (20:28)
[2025-03-07] MEDS ORDERED: Topiramate 100 MG Tab PO SCH (21:00)
[2025-03-07 22:17] VITALS: BP 125/58
[2025-03-07 22:31] VITALS: BP 118/70
[2025-03-07 22:40] VITALS: BP 131/75
[2025-03-07] MEDS ORDERED: Morphine Sulfate 4 MG/1 ML Injection IV ONE (23:00)
[2025-03-07] MEDS ORDERED: Potassium Chloride 20 MEQ TabCR PO ONE (23:20)
[2025-03-07] MEDS ORDERED: Scopolamine Hydrobromide Patch TD SCH (23:35)
[2025-03-07] MEDS ORDERED: Clopidogrel Bisulfate 75 MG Tab PO ONE (23:40)
[2025-03-08] VITALS (7 sets, daily range): BP systolic 103–131; BP diastolic 51–70
--- NOTE | 2025-03-08 00:02 | NUR ---
CALLED TO ROOM BY PRIMARY RN. PT HAVING ACTIVE CHEST PAIN WHICH SHE RATS 06/18. PT STATES NOT BAD WHEN SHE CAME TO ER. CALL MADE TO [employer] CUSTOMER SERVICE SPECIALIST - HOSPITALIST. ORDERS RECEIVED. DR BENAVIDES, AND DR KELLY TO ROOM. ATTEMPTS TO REPRODUCE CHEST PAIN HAVE RESULTED IN SOME REPRODUCTION. EKG DONE AND TROPONIN DRAWN. ORDERS RECEIVED FOR CARDIOLOGY CONSULT. MEDICATION CHANGES, AND ECHO. CALLED [facility].
[2025-03-08] MEDS ORDERED: Mag Sulfate 1 GM/D5% 100ML 100 ML IV ONE (00:25)
--- NOTE | 2025-03-08 00:34 | NUR ---
CHEST PAIN EVENT PATIENT WAS COMPLAINING OF CHEST PAIN TONIGHT. IT STARTED AT ABOUT 2220. PATIENT WAS ADMITTED TO THE FLOOR FROM THE ER WITH CP, BUT THE CP WAS INCREASING. DINING ROOM CAPTAIN WAS NOTIFIED AND CAME TO THE ROOM TO ASSIST ALONG WITH OTHER RN'S. MD WAS NOTIFIED AND ALSO CAME TO THE ROOM. EKG WAS TAKEN. VITAL SIGNS WERE TAKEN. NITRO WAS GIVEN X3 5 MINUTES APART. CP CONTINUED. PLEASE SEE ASSOCIATED ORDERS WITH THIS EVENT. PATIENT IS RESTING COMFORTABLY AT THIS TIME. PLAVIX HAS BEEN ADMINISTERED. HEPARIN GTT TO BE STARTED.
[2025-03-08 00:38] LABS: Anti-Xa UFH, PHA Monitoring <0.10 IU/mL; International Normalized Ratio 1.06; Prothrombin Time Results 11.3 Sec (9.7-11.5)
[2025-03-08] MEDS ORDERED: Heparin Sodium,Porcine/0.5 NS 500 ML IV SCH (01:00)
[2025-03-08] MEDS ORDERED: Morphine Sulfate 4 MG/1 ML Injection IV PRN (03:20)
--- NOTE | 2025-03-08 03:44 | NUR ---
SHIFT SUMMARY PATIENT STATED HER CP WAS INCREASING AGAIN AND REQUESTED MORE MORPHINE. MD WAS NOTIFIED AND ORDERED MORPHINE Q 4 HRS PRN. IT WAS ADMINISTERED. VITAL SIGNS HAVE BEEN STABLE. HEPARIN GTT IS INFUSING WITHOUT COMPLICATIONS. PATIENT IS ORIENTED X4. SHE HAS AGREED TO PUSH HER CALL LIGHT WITH ANY REQUEST OR NEEDS.
[2025-03-08] MEDS ORDERED: Ciprofloxacin 400MG/D5 200ML 200 ML IV SCH (04:00)
[2025-03-08 04:59] LABS: BASOPHILS ABSOLUTE AUTO 0.04 K/mm3 (0.00-0.23); BASOPHILS PERCENT AUTO 1 % (0-2); EOSINOPHILS ABSOLUTE AUTO 0.18 K/mm3 (0.00-0.68); EOSINOPHILS PERCENT AUTO 6 % (0-6); Hematocrit 37.6 % (33.0-51.0); Hemoglobin 12.8 g/dL (11.5-16.0); IMMATURE GRAN PERCENT AUTO 0 % (0-1); LYMPHOCYTES ABSOLUTE AUTO 1.02 K/mm3 (0.84-5.20); LYMPHOCYTES PERCENT AUTO 34 % (21-46); MONOCYTES ABSOLUTE AUTO 0.33 K/mm3 (0.16-1.47); MONOCYTES PERCENT AUTO 11 % (4-13); Mean Corpuscular HGB 34.3 pg (26.0-34.0); Mean Corpuscular Volume 101 fL (80-100); NEUTROPHILS ABSOLUTE AUTO 1.44 K/mm3 (1.96-9.15); NEUTROPHILS PERCENT AUTO 48 % (41-73); Platelet Count 106 K/mm3 (150-400); RDW Coefficient Variation 12.6 % (11.7-14.2); RDW Standard Deviation 47.2 fL (35.1-46.3); Red Blood Cell Count 3.73 M/mm3 (3.80-5.20); White Blood Cell Count 3.01 K/mm3 (4.00-11.30)
[2025-03-08 05:25] LABS: Albumin, Blood 2.8 g/dL (3.4-5.0); Albumin/Globulin Ratio 0.8 (0.8-1.8); Bilirubin, Total 0.8 mg/dL (0.1-1.0); Bun/Creatinine Ratio 22.5 (12.0-20.0); Calcium, Blood 7.6 mg/dL (8.5-10.1); Creatinine, Blood 0.53 mg/dL (0.40-1.00); Globulin, Blood 3.4 g/dL (2.2-4.0); Magnesium, Blood 2.4 mg/dL (1.6-2.4); Potassium, Blood 4.1 mmol/L (3.5-5.5); Total Protein, Blood 6.2 g/dL (6.4-8.2)
[2025-03-08] MEDS ORDERED: Pantoprazole Sodium 40 MG Tab PO SCH (06:00)
[2025-03-08] MEDS ORDERED: NS 250 ML IV PRN (08:05)
[2025-03-08] MEDS ORDERED: [UNRECOGNIZED DRUG - OTHER] PO SCH (09:00)
[2025-03-08] MEDS ORDERED: CefTRIAXone Sodium 1,000 MG in NS 100 ML IV SCH (09:00)
[2025-03-08] MEDS ORDERED: Clopidogrel Bisulfate 75 MG Tab PO SCH (09:00)
[2025-03-08] MEDS ORDERED: Dose Adjust by Pharmacy XX STA (09:45)
[2025-03-08] MEDS ORDERED: EPIPEN0.3 MG/0.3 IM (11:08)
[2025-03-08] MEDS ORDERED: AmLODIPine Besylate 5 MG Tab PO SCH (11:25)
[2025-03-08] MEDS ORDERED: Aspirin/Caffeine/Butalbital 1 CAP PO PRN (11:25)
[2025-03-08] MEDS ORDERED: Cyclobenzaprine HCl 10 MG Tab PO PRN (11:25)
[2025-03-08] MEDS ORDERED: Potassium Chloride 20 MEQ TabCR PO SCH (11:30)
[2025-03-08] MEDS ORDERED: Isosorbide Mononitrate 60 MG TABCR PO SCH (11:30)
[2025-03-08] MEDS ORDERED: HyDROXyzine HCl 25 MG Tab PO PRN (11:30)
[2025-03-08] MEDS ORDERED: FLUoxetine HCL 20 MG CAP PO SCH (11:30)
[2025-03-08] MEDS ORDERED: HYDROcodone 5-APAP 325 TAB PO PRN (11:30)
[2025-03-08] MEDS ORDERED: FentaNYL Citrate 50 MCG/ML 2 ML Injection ONE ×2 (13:21→15:00)
[2025-03-08] MEDS ORDERED: Verapamil HCL 2.5 MG/ML 2ML Injection ONE (13:21)
[2025-03-08] MEDS ORDERED: Midazolam HCl 1MG / ML 2ML Vial ONE ×3 (13:21→15:41)
[2025-03-08] MEDS ORDERED: Nitroglycerin 2 MG/20 ML BTL ONE (13:22)
[2025-03-08] MEDS ORDERED: NS 250 ML IV ONE (13:22)
[2025-03-08] MEDS ORDERED: NS 1,000 ML IV ONE ×2 (13:22→15:00)
[2025-03-08] MEDS ORDERED: Heparin Sodium 1000 Units/ML 10ML MDV ONE (13:22)
--- NOTE | 2025-03-08 15:52 | NUR ---
SUMMARY PATIENT NPO ALL MORNIG PENDING ANGIOGRAM WITH DR. MELTON. HER VERTIGO IS STILL PRESENT AND CANT TOLERATE MUCH ACTIVITY APART FROM SITTING UP IN BED WITHOUT THE ROOM SPINNING AND HER EXTREMETIES START TREMORING. PUREWICK IN PLACE. NO BM THIS SHIFT. PATIENT REPROTS LAST BM MAYBE 2-3 AYS AGO. REPROTS HISTORY FALLS AND USUALLY WALKS WITH WALKER/CANE. MRI HEAD ORDERED AND FORM FILLED OUT AND FAXED. PATIENT PICKED UP FOR ANGIO AROUND 155. REPORT DE LA O DTO SENIOR SOFTWARE DEVELOPER [employer]CRECIA. BELONGINGS GATHERED AND WILL BE TAKEN DOWN TO PCU 7.
--- NOTE | 2025-03-08 18:33 | NUR ---
Transfer/ End of shift note. Pt transferred from Medical floor room 328 to [facility] after her angio. Angio was clear. Right radial site. Air has been removed. Pt continues to complain of chest pain 04/18. Medicated per JAN. Good PO intake since arriving to the unit. Pt has not been getting OOB due to significant vertigo symptoms. [place] [facility] [place] of full body tremors while moving. Some complaints of nausea once back to bed. Pt is able to make needs known, call light is within reach.
[2025-03-08] MEDS ORDERED: Atorvastatin 40 MG Tab PO SCH (21:00)
[2025-03-09 03:06] VITALS: BP 122/60
--- NOTE | 2025-03-09 04:57 | NUR ---
SHIFT SUMMARY PT A&O X4, ABLE TO MAKE NEEDS KNOWN. VSS, AFEBRILE, SPO2 >95% ON RA. PT CONTINUES TO REPORT CP WITH SOB, MEDICATED PER EMAR. SHE STILL HAS COMPLAINT OF VERTIGO, ESPECIALLY WITH MOVEMENT AND AMBULATION. ANGIO COMPLETED 03/08/25, TR BAND RECOVERED THIS SHIFT. R RADIAL SITE DEVELOPED SMALL HEMATOMA ON DAY SHIFT 03/08/25, THIS HAS NOT INCREASED IN SIZE. BORDERS MARKED. NO BLEEDING FROM SITE. ARM BOARD IN PLACE. CALL LIGHT IN REACH, BREATHING IS EVEN AND UNLABORED.
[2025-03-09 05:06] LABS: Bun/Creatinine Ratio 20.8 (12.0-20.0); Calcium, Blood 7.9 mg/dL (8.5-10.1); Creatinine, Blood 0.53 mg/dL (0.40-1.00); Potassium, Blood 4.3 mmol/L (3.5-5.5)
[2025-03-09 05:49] LABS: BASOPHILS ABSOLUTE AUTO 0.04 K/mm3 (0.00-0.23); BASOPHILS PERCENT AUTO 2 % (0-2); EOSINOPHILS PERCENT AUTO 8 % (0-6); Hematocrit 37.2 % (33.0-51.0); Hemoglobin 12.5 g/dL (11.5-16.0); IMMATURE GRAN ABSOLUTE AUTO 0.01 K/mm3 (0.00-0.10); IMMATURE GRAN PERCENT AUTO 0 % (0-1); LYMPHOCYTES ABSOLUTE AUTO 0.51 K/mm3 (0.84-5.20); LYMPHOCYTES PERCENT AUTO 19 % (21-46); MONOCYTES PERCENT AUTO 11 % (4-13); Mean Corpuscular HGB 33.6 pg (26.0-34.0); Mean Corpuscular HGB Conc 33.6 g/dL (31.5-36.5); Mean Corpuscular Volume 100 fL (80-100); Mean Platelet Volume 11.9 fL (9.1-12.4); NEUTROPHILS PERCENT AUTO 60 % (41-73); Platelet Count 103 K/mm3 (150-400); RDW Coefficient Variation 12.3 % (11.7-14.2); RDW Standard Deviation 45.5 fL (35.1-46.3); Red Blood Cell Count 3.72 M/mm3 (3.80-5.20); White Blood Cell Count 2.66 K/mm3 (4.00-11.30)
[2025-03-09] MEDS ORDERED: Levothyroxine Sodium 0.137 MG Tab PO SCH (06:00)
[2025-03-09 07:33] VITALS: BP 117/59
[2025-03-09] MEDS ORDERED: Docosahexanoic Acid/EPA 1,000 MG CAP PO SCH (09:00)
[2025-03-09] MEDS ORDERED: Metoprolol Succinate 25 MG TABCR PO SCH (09:00)
--- NOTE | 2025-03-09 10:00 | NUR ---
AM NOTE PT ALERT, ORIENTED X4; CALM AND COOPERATIVE WITH CARE. PT RESTING IN BED, PUREWICK IN PLACE. TREMORS NOTED WITH MOVEMENT. PT REPORTS CHEST PRESSURE, RADIATING TO LEFT SHOULDER, MEDICATED X1 WITH NORCO. PT REPORTING DIZZINESS AND NAUSEA; MEDICATED WITH MECHLAZINE AND PEPPERMINT TEA/GINGERALE. PT REPORTS SOB, LS CLEAR, SPO2 >90% ON RA. TELE 80'S, BP STABLE. DEPENDENT EDEMA NOTED TO BLE. ABD SOFT, NONTENDER, +BT. OTHER VSS. CALL LIGHT WITHIN REACH. MRI COMPLETED THIS AM.
[2025-03-09] MEDS ORDERED: LORazepam 2 MG/ML 1ML Injection ONE (10:52)
[2025-03-09] MEDS ORDERED: LORazepam 2 MG/ML 1ML Injection IV ONE (10:55)
[2025-03-09 11:32] VITALS: BP 109/65
--- NOTE | 2025-03-09 12:50 | NUR ---
AT APPROX 1045 DR SPENCER AND PHYSICAL THERAPY AT BEDSIDE. PT SAT PATIENT UP AND PATIENT STRATED HAVING FULL BODY TREMORS AND HAVING INCREASED DIZZINESS. LADY BACK AND PATIENTS TREMORS CONTINUED FOR APPROX 20 MINTUES, ATTEMPTED ATIVAN 0.25 IV NOW WITH MINIMAL RESPONSE FOR TREMORS. VSS.
--- NOTE | 2025-03-09 12:56 | NUR ---
AT APPROX 1045 DR SPENCER AND PHYSICAL THERAPY AT BEDSIDE. PT SAT PATIENT UP AND PATIENT STRATED HAVING FULL BODY TREMORS AND HAVING INCREASED DIZZINESS. LADY BACK, HEART RATE 160'S, AND PATIENTS TREMORS CONTINUED FOR APPROX 20 MINTUES, ATTEMPTED ATIVAN 0.25 MG IN NOW WITH MINIMAL RESPONSE FOR TREMORS. OTHER VSS.
--- NOTE | 2025-03-09 16:46 | NUR ---
Shift Summary Pt resting for majority of shift. Medicated for pain this afternoon with positive results. No other acute changes noted. VSS. Report given to RN assuming care of patient.
[2025-03-09] MEDS ORDERED: Meclizine HCl 25 MG Tab PO SCH (18:00)
[2025-03-09 20:26] VITALS: BP 127/57
[2025-03-09] MEDS ORDERED: MethylPREDNISolone Sod Succ 125 MG Vial IV SCH (21:00)
[2025-03-09] MEDS ORDERED: NS IV SCH (21:30)
[2025-03-09] MEDS ORDERED: METHYLPREDNISOLONE SOD SUCC IV SCH (21:30)
[2025-03-09 23:35] VITALS: BP 129/59
[2025-03-10 04:06] LABS: BASOPHILS ABSOLUTE AUTO 0.01 K/mm3 (0.00-0.23); BASOPHILS PERCENT AUTO 0 % (0-2); EOSINOPHILS ABSOLUTE AUTO 0.01 K/mm3 (0.00-0.68); EOSINOPHILS PERCENT AUTO 0 % (0-6); Hematocrit 42.8 % (33.0-51.0); Hemoglobin 14.4 g/dL (11.5-16.0); IMMATURE GRAN ABSOLUTE AUTO 0.01 K/mm3 (0.00-0.10); IMMATURE GRAN PERCENT AUTO 0 % (0-1); LYMPHOCYTES ABSOLUTE AUTO 0.56 K/mm3 (0.84-5.20); LYMPHOCYTES PERCENT AUTO 24 % (21-46); MONOCYTES ABSOLUTE AUTO 0.07 K/mm3 (0.16-1.47); MONOCYTES PERCENT AUTO 3 % (4-13); Mean Corpuscular HGB 33.8 pg (26.0-34.0); Mean Corpuscular HGB Conc 33.6 g/dL (31.5-36.5); Mean Corpuscular Volume 101 fL (80-100); Mean Platelet Volume 12.1 fL (9.1-12.4); NEUTROPHILS ABSOLUTE AUTO 1.67 K/mm3 (1.96-9.15); NEUTROPHILS PERCENT AUTO 72 % (41-73); Platelet Count 119 K/mm3 (150-400); RDW Coefficient Variation 12.4 % (11.7-14.2); RDW Standard Deviation 45.8 fL (35.1-46.3); Red Blood Cell Count 4.26 M/mm3 (3.80-5.20); White Blood Cell Count 2.33 K/mm3 (4.00-11.30)
[2025-03-10 04:27] LABS: Albumin, Blood 3.2 g/dL (3.4-5.0); Albumin/Globulin Ratio 0.7 (0.8-1.8); Bilirubin, Total 0.6 mg/dL (0.1-1.0); Bun/Creatinine Ratio 17.6 (12.0-20.0); Calcium, Blood 9.1 mg/dL (8.5-10.1); Creatinine, Blood 0.57 mg/dL (0.40-1.00); Globulin, Blood 4.4 g/dL (2.2-4.0); Potassium, Blood 4.2 mmol/L (3.5-5.5); Total Protein, Blood 7.6 g/dL (6.4-8.2)
[2025-03-10 06:05] VITALS: BP 114/83
--- NOTE | 2025-03-10 06:09 | NUR ---
SHIFT SUMMARY PT A&O X4, CALM, COOPERATIVE TO CARE. PT HAS WHOLE BODY TREMORS WITH ACTIVITY THAT SLOWLY RESOLVES FROM THE FEET UP. PT ALSO HAS DIZZINESS WITH MOVEMENT, MEDICATING PER EMAR. NEUROLOGY AT BEDSIDE AT START OF SHIFT, MEDICATIONS ORDERED. HR IN THE 70'S, SINUS RHYTHM. SHE HAS INTERMITTENT CP THAT RADIATES TO SHOULDER AND NECK, PT DID HAVE ONE EPISODE OF PAIN IN THE NECK/SHOULDER T/O SHIFT. MEDICATED PER EMAR, PAIN HAS SINCE RESOLVED. SBP STABLE. O2 >92% ON RA, SHE DENIES ANY SOB. PT HAS PUREWICK IN PLACE. PER REPORT PT VERY TREMULOUS WHEN UP TO BSC YESTERDAY. PT UP TO BSC ONCE T/O SHIFT, SLIGHTLY TREMULOUS. PT REPORTED TREMORS WERE BETTER LAST NIGHT THEN THE PREVIOUS DAY, HOWEVER, PT DID SLEEP MOST OF THE NIGHT. NO ACUTE CHANGES T/O SHIFT. WILL MONITOR PT AND REPORT TO ONCOMING RN.
[2025-03-10 07:20] VITALS: BP 105/69
--- NOTE | 2025-03-10 07:55 | NUR ---
ASSUMPTION NOTE: THIS RN TO ASSUME CARE OF PATIENT. PATIENT RESTING IN BED, EASILY AROUSABLE. VITAL SIGNS TAKEN & PATIENT STABLE. HAS CALL LIGHT WITHIN REACH, BED IN LOWEST POSITION & STATING NOTHING IS NEEDED AT THIS TIME.
[2025-03-10] MEDS ORDERED: Enoxaparin 40 MG/0.4 ML SYR SC SCH (09:00)
--- NOTE | 2025-03-10 11:16 | NUR ---
MD SANTIAGO: MD SANTIAGO AND SPOKE WITH PATIENT & SPOUSE AT BEDSIDE. PATIENT WILL BECOME MEDICAL STATUS WITHOUT TELE. PATIENT AWARE PLAN MOVING FORWARD WILL BE TO CONTINUE TO LET THE MEDICATIONS WORK & PATIENT WILL NEED TO WORK WITH PCP TO GET INSURANCE APPROVAL FOR THE MEDCIATION THE NEUROLOGIST RECCOMENDED.
[2025-03-10 12:02] VITALS: BP 141/85
--- NOTE | 2025-03-10 14:30 | NUR ---
TRANSFER NOTE: REPORT WAS GIVEN PRIOR TO TRANSFERRING TO AKIRA GIVENS. PATIENT IS ALERT AND ORIENTED X4 & COOPERATIVE WITH HER CARE. IS MEDICAL WITHOUT TELE STATUS. WAS TAKEN VIA WHEELCHAIR WITH ALL PERSONAL BELONGINGS, MEDICATIONS & CHART. PATIENT NOTIFIED FAMILY OF THE MOVE.
[2025-03-10 14:42] VITALS: BP 118/67
[2025-03-10 20:56] VITALS: BP 127/65
[2025-03-11 02:15] VITALS: BP 123/63
--- NOTE | 2025-03-11 03:55 | NUR ---
SHIFT SUMM: PT ROSAURA 69 YO FULL CODE WHO WAS ADMITTED FOR WORSENING CP. PT HAS HAD A RESTFUL EVENING AND REPORTS NO CP THIS SHIFT BUT DOES FEEL SORE IN NECK, BACK AND MIGRAINE. PT WAS MEDICATED PER EMAR AND FELT MUCH BETTER. PT WAS ABLE TO TOLERATE A SNACK AND GOT SOME SLEEP W/HER CPAP THIS SHIFT. PT IS A SBA W/FWW TO THE BSC FOR SAFETY BECAUSE SHE STILL GETS SHAKY AND DIZZY AT TIMES FROM HER VERTIGO. PT'S IV REMAINS PATENT THIS SHIFT. PT'S TELE HAS BEEN D/C'D. PT HAS CALL LIGHT IN REACH AND BED LOW AND LOCKED FOR SAFETY.
[2025-03-11 07:58] VITALS: BP 113/71
[2025-03-11 15:34] VITALS: BP 121/68
[2025-03-11] MEDS ORDERED: HYDROcodone 5-APAP 325 TAB PO PRN (18:10)
--- NOTE | 2025-03-11 18:10 | NUR ---
SHIFT SUMMARY: PATIENT PLEASANT AND COOPERATIVE WITH CARE. PATIENT REPORTED PAIN AND MEDICATED PER EMAR. IV REMOVED FROM LEFT FOREARM DUE TO PAIN, NEW IV PLACED WITH ASSISTANCE OF ULTRASOUND, NEW IV PATENT. ONE PERSON FWW WALKER TO BATHROOM. NO REPORTS OF DIZZINESS.
--- NOTE | 2025-03-11 18:33 | NUR ---
SHIFT SUMMARY PATIENT A/OX4, ABLE TO MAKE NEEDS KNOWN. PLEASANT AND COOPERATIVE WITH CARE. PATIENT COMPLAINING OF BACK, SHOULDER, AND CHEST PAIN. ADMINISTERED MORPHINE, NORCO, AND FLEXERIL PER MAR THIS SHIFT. PATIENT'S AT BEDSIDE THIS AFTERNOON. CONTINUOUS PUSLE OX IN PLACE, SPO2 WNL ON ROOM AIR. PATIENT PROVIDED WITH HEAT PACK FOR MUSCLE PAIN. NEW IV PLACED TO LEFT FOREARM VIA ULTRASOUND, PREVIOUS IV PAINFUL AND REMOVED. NO OTHER CONCERNS AT THIS TIME.
[2025-03-11 20:03] VITALS: BP 103/59
[2025-03-12 04:00] VITALS: BP 126/65
--- NOTE | 2025-03-12 04:54 | NUR ---
SUMMARY: PT A/OX4, IS ABLE TO MAKE NEEDS KNOWN AND IS PLEASANT AND COOPERATIVE W/CARE. SHE'S AWARE OF LIMITATIONS AND UP W/1PA AND FWW TO TOILET D/T WEAKNESS AND OCC.TREMOR. PT REPORTS NECK AND BACK PAIN W/NORCO RECEIVED PRN FOR TOLERABLE EFFECT. KPAD IS ALSO IN PLACE FOR IMPROVED COMFORT. TEGADERM DX AND ARM BOARD IS INTACT TO R.FA S/P ANGIO AND HEALING BRUISE OBSERVED TO REGION. SCATTERED BLE ECCHYMOSIS ALSO NOTED WHICH PT CONTRIBUTES TO SPASTICITY OF EXT'S AGAINST HARD SURFACES. DEPACON AND ANTIVERT RECEIVED PER EMAR. PT REPORTS CHRONIC VERTIGO PERSISTS. SPO2 IS WNL ON RA AND PT TOLERATED CPAP AT HS W/CONT BIOX INTACT. NO ACUTE CHANGES, VSS/AFEBRILE. WILL REPORT TO DAY RN.
--- NOTE | 2025-03-12 05:49 | NUR ---
SUMMARY: PT A/OX4, CALLS APPROPRIATELY TO SPECIFY NEEDS AND IS PLEASANT AND COOPERATIVE W/CARE. HE'S SBA W/FWW OOB TO BATHROOM TO VOID AND PULLUPS CHANGED PRN FOR REPORT OF "DRIBBLING". GROIN/PANNUS APPEARS RASHY BUT PT REFUSED MICONAZOLE POWDER WHEN OFFERED AT HS. IV ABX RECEIVED FOR UTI PER EMAR. HE C/O FEELING CONGESTED AND SOB AT TIMES BUT SPO2 IS WNL ON RA, LS ARE CLEAR T/O AND NO S/S RESP OR CARDIAC DISTRESS OBSERVED. RN SUGGESTED POSSIBLY TRIALING NASAL SPRAY BUT PT DENIED NEED AT THIS TIME. HE REMAINS NSR W/1 DEGREE BLOCK AT 70'S BPM. VSS/AFEBRILE AND NO ACUTE CHANGES. HOME MEDS STILL NEED RECONCILLED BUT PT'S SPOUSE PLANS TO PROVIDE LIST TODAY. WILL ENSURE DAY STAFF ARE AWARE AND REPORT TO DAY RN.
[2025-03-12 07:53] VITALS: BP 120/68
[2025-03-12] MEDS ORDERED: Magnesium Sulf 2 GM/Water 50ML 50 ML IV STA (12:38)
[2025-03-12 15:17] VITALS: BP 117/61
--- NOTE | 2025-03-12 17:34 | NUR ---
SHIFT SUMMARY PT CONT LEVEL OF CARE. PT NOTED TO BE A&OX4 AND ASSIST X1 WITH FWW. PT NOTED TO CALL APPROPRIATE AND KNOWS LIMITATIONS. PT VOICED CONCERN OF WORSENING VERTIGO. PROVIDER NOTIFIED AND RECEIVED NEW ORDER FOR IV MAG. PT STATED THIS HAS HELPED WITH THE VERTIGO. PLAN IS TO POSSIBLE DC IN 1-2 IF PT CONT TO IMPROVE.
[2025-03-12 20:01] VITALS: BP 137/70
[2025-03-13 02:48] VITALS: BP 127/70
--- NOTE | 2025-03-13 06:00 | NUR ---
SHIFT SUMMARY PT SLEPT LONG INTERVALS THROUGH THE NIGHT. CPAP ON AT HS AND CONTNUOUS PULSE OX WITH SATS WNL. PT CONTNUES TO HAVE VERTIGO, BUT STATES SOME IMPROVEMENT THIS AM. PT DENIES ANY CHEST PAIN. MEDICATED FOR NECK PAIN X1 PER EMAR. BED IN LOWEST POSITION, CALL LIGHT WITHIN REACH, SIDERAILS UP X2.
[2025-03-13 06:44] LABS: Bun/Creatinine Ratio 35.2 (12.0-20.0); Calcium, Blood 8.6 mg/dL (8.5-10.1); Creatinine, Blood 0.48 mg/dL (0.40-1.00); Potassium, Blood 3.4 mmol/L (3.5-5.5)
[2025-03-13 07:35] VITALS: BP 119/79
[2025-03-13] MEDS ORDERED: METPRE4DP PO (12:07)
--- NOTE | 2025-03-13 14:20 | NUR ---
DC SUMMARY PT DC THIS SHIFT DC INSTRUCTION GONE OVER WITH PT AND PT WHOM STATED UNDERSTANDING.
== END 2025-03-13 14:21 | disposition home health service (06) | DRG 287 ==
LOC: ER 12:18 → MEDS 12:19 → PCU 03-08 15:03 → MEDS 03-08 15:03 → PCU 03-08 15:50 → MEDS 03-10 14:47
PROVIDERS: Family Medicine; Student in an Organized Health Care Education/Training Program; ADMIT Internal Medicine
PROC: 4A023N7 Measurement of Cardiac Sampling and Pressure, Left Heart, Percutaneous Approach (ICD-10-PCS; principal; 2025-03-08)
PROC: B2111ZZ Fluoroscopy of Multiple Coronary Arteries using Low Osmolar Contrast (ICD-10-PCS; 2025-03-08)
PROC: B2151ZZ Fluoroscopy of Left Heart using Low Osmolar Contrast (ICD-10-PCS; 2025-03-08)
PROC: 5A09357 Assistance with Respiratory Ventilation, Less than 24 Consecutive Hours, Continuous Positive Airway Pressure (ICD-10-PCS; 2025-03-08)
DX: I25.110 Atherosclerotic heart disease of native coronary artery with unstable angina pectoris (principal); N39.0 Urinary tract infection, site not specified; I10 Essential (primary) hypertension; E03.9 Hypothyroidism, unspecified; K21.9 Gastro-esophageal reflux disease without esophagitis; G47.33 Obstructive sleep apnea (adult) (pediatric); E78.5 Hyperlipidemia, unspecified; I35.1 Nonrheumatic aortic (valve) insufficiency; J45.20 Mild intermittent asthma, uncomplicated; M79.7 Fibromyalgia; G43.109 Migraine with aura, not intractable, without status migrainosus; F41.1 Generalized anxiety disorder; F32.9 Major depressive disorder, single episode, unspecified; M51.369 Other intervertebral disc degeneration, lumbar region without mention of lumbar back pain or lower extremity pain; K76.0 Fatty (change of) liver, not elsewhere classified; D69.6 Thrombocytopenia, unspecified; M47.892 Other spondylosis, cervical region; H81.10 Benign paroxysmal vertigo, unspecified ear; D72.819 Decreased white blood cell count, unspecified; B96.20 Unspecified Escherichia coli [E. coli] as the cause of diseases classified elsewhere; K44.9 Diaphragmatic hernia without obstruction or gangrene; I45.81 Long QT syndrome; R79.89 Other specified abnormal findings of blood chemistry; Z88.0 Allergy status to penicillin; Z88.8 Allergy status to other drugs, medicaments and biological substances; Z91.030 Bee allergy status; Z79.890 Hormone replacement therapy; Z79.899 Other long term (current) drug therapy; Z79.891 Long term (current) use of opiate analgesic; Z79.51 Long term (current) use of inhaled steroids; Z85.3 Personal history of malignant neoplasm of breast; Z87.19 Personal history of other diseases of the digestive system; Z90.710 Acquired absence of both cervix and uterus; Z90.89 Acquired absence of other organs; Z98.890 Other specified postprocedural states; Z98.49 Cataract extraction status, unspecified eye; Z93.3 Colostomy status; Z87.891 Personal history of nicotine dependence; Z92.21 Personal history of antineoplastic chemotherapy; Z92.3 Personal history of irradiation; Z90.722 Acquired absence of ovaries, bilateral; Z99.89 Dependence on other enabling machines and devices
CPT/HCPCS: 36415; 70551; 71045; 76937; 80048; 80053; 81001; 83605; 83735; 83880; 84484; 85025; 85520; 85610; 87040; 87077; 87086; 87186; 93005; 93010; 93306; 93458; 94640; 94660; 94664; 94762; 96365; 96367; 96375; 96376; 97112-CQ; 97162; 97165; 97530; 97535; 99152; 99153; 99285-25; A9270; C1769; C1887; C1894; G0378; J0696; J0744; J1644; J1650; J2060; J2250; J2270; J2405; J2919; J3010; J3475; J7030; J7050; Q9967

== ENCOUNTER → 2025-06-29 | Outpatient (CLI) | payer MEDICARE, OTHER ==
[~2025-06-29] MED LIST changes: +AMLODIPINE BESYL5 MG PO; +BUTALB-ACETAMI1 EAC6; +CARVEDILOL3.125 MG PO; +CYCL10 PO; +EPIPEN0.3 MG/0.3 IM; +FLUOXETINE HCL20 M2 PO; +HYDHCL25; +HYDROCODONE-AC1 EA10; +ISOSORBIDE MONO30 MG PO; +K-TAB ER20 ME1; +LIPITOR80 MG PO; +MECL25; +METOPROLOL SUCC25 MG PO; +METPRE4DP PO
== END ==
LOC: LAB SHORT 17:25 → LAB 17:25
DX: R06.09 Other forms of dyspnea (principal)
CPT/HCPCS: 83880

== ENCOUNTER → 2025-06-29 | Outpatient (CLI) | payer MEDICARE, OTHER ==
[2025-06-29 18:53] LABS: CHOL/HDL RATIO 1.5; Cholesterol 123 mg/dL (50-200); HDL Cholesterol 82 mg/dL (>39); LDL/HDL RATIO 0.3; Low Density Lipoprotein Chol 27 mg/dL (0-110); Thyroid Stimulating Hormone 8.210 uIU/mL (0.360-4.800); Triglycerides 69 mg/dL (30-160); Very Low Density Lipoprot Chol 13 mg/dL (6-32)
== END ==
LOC: LAB 09:50 → LAB SHORT 09:50
PROVIDERS: Student in an Organized Health Care Education/Training Program
DX: R00.2 Palpitations (principal); R07.9 Chest pain, unspecified; R06.09 Other forms of dyspnea
CPT/HCPCS: 80061; 83880; 84443

== ENCOUNTER 2025-08-15 16:21 | Emergency (ER) | payer MEDICARE, OTHER ==
[~2025-08-15] VITALS: Ht 165.1 cm; Wt 62.1 kg
[2025-08-15] MEDS ORDERED: Metoprolol Tartrate 1 MG/ML 5 ML VIAL IV PRN (16:35)
[2025-08-15 16:40] LABS: BASOPHILS ABSOLUTE AUTO 0.02 K/mm3 (0.00-0.23); BASOPHILS PERCENT AUTO 1 % (0-2); EOSINOPHILS ABSOLUTE AUTO 0.03 K/mm3 (0.00-0.68); EOSINOPHILS PERCENT AUTO 1 % (0-6); Hematocrit 36.9 % (33.0-51.0); Hemoglobin 12.8 g/dL (11.5-16.0); IMMATURE GRAN ABSOLUTE AUTO 0.01 K/mm3 (0.00-0.10); IMMATURE GRAN PERCENT AUTO 0 % (0-1); LYMPHOCYTES ABSOLUTE AUTO 1.22 K/mm3 (0.84-5.20); LYMPHOCYTES PERCENT AUTO 31 % (21-46); MONOCYTES ABSOLUTE AUTO 0.40 K/mm3 (0.16-1.47); MONOCYTES PERCENT AUTO 10 % (4-13); Mean Corpuscular HGB Conc 34.7 g/dL (31.5-36.5); Mean Corpuscular Volume 96 fL (80-100); NEUTROPHILS ABSOLUTE AUTO 2.24 K/mm3 (1.96-9.15); NEUTROPHILS PERCENT AUTO 57 % (41-73); NRBC ABSOLUTE 0.00 K/mm3 (0.00-0.02); NRBC Auto 0.0 /100 WBC (0.0-0.2); Platelet Count 119 K/mm3 (150-400); RDW Coefficient Variation 12.9 % (11.7-14.2); RDW Standard Deviation 45.1 fL (35.1-46.3)
[2025-08-15 17:05] LABS: Alanine Aminotransfer (ALT/SGP 82.0 U/L (12-78); Albumin, Blood 2.8 g/dL (3.4-5.0); Albumin/Globulin Ratio 0.8 (0.8-1.8); Anion Gap 9.0 mmol/L (3-11); Aspartate Aminotrans (AST/SGOT 136.0 U/L (12-37); Bilirubin, Total 1.0 mg/dL (0.1-1.0); Blood Urea Nitrogen 10.0 mg/dL (8-24); CO2, Blood 29.0 mmol/L (21-32); Calcium, Blood 8.7 mg/dL (8.5-10.1); Chloride, Blood 102.0 mmol/L (98-108); Creatinine, Blood 0.41 mg/dL (0.40-1.00); Globulin, Blood 3.6 g/dL (2.2-4.0); Glucose, Blood 96.0 mg/dL (70-99); Magnesium, Blood 1.3 mg/dL (1.6-2.4); Potassium, Blood 3.2 mmol/L (3.5-5.5); Sodium, Blood 137.0 mmol/L (136-145); Total Protein, Blood 6.4 g/dL (6.4-8.2)
[2025-08-15] MEDS ORDERED: FentaNYL Citrate 50 MCG/ML 2 ML Injection IV ONE (17:20)
[2025-08-15] MEDS ORDERED: TOPI50 PO (17:46)
[2025-08-15] MEDS ORDERED: HYDROCODONE-AC1 EAC7 PO (17:46)
[2025-08-15] MEDS ORDERED: TOPROL XL50 M1 PO (17:46)
[2025-08-15] MEDS ORDERED: OMEP20ER (17:47)
[2025-08-15] MEDS ORDERED: ZOLOFT50 MG PO (17:47)
[2025-08-15] MEDS ORDERED: Mag Sulfate 1 GM/D5% 100ML 100 ML IV ONE (18:50)
[2025-08-15] MEDS ORDERED: FentaNYL Citrate 50 MCG/ML 2 ML Injection IV PRN (20:35)
[2025-08-15 22:30] VITALS: BP 134/76
[2025-08-15] MEDS ORDERED: ELIQUIS5 M2 PO (22:36)
[2025-08-15] MEDS ORDERED: METO25 PO (22:36)
== END 2025-08-15 23:20 | disposition home or self-care (01) ==
LOC: ER 16:21
PROVIDERS: Emergency Medicine
DX: I48.91 Unspecified atrial fibrillation (principal); E87.6 Hypokalemia; E83.42 Hypomagnesemia; R74.01 Elevation of levels of liver transaminase levels; K44.9 Diaphragmatic hernia without obstruction or gangrene; K76.0 Fatty (change of) liver, not elsewhere classified; I70.1 Atherosclerosis of renal artery; Z91.030 Bee allergy status; Z88.5 Allergy status to narcotic agent; Z88.0 Allergy status to penicillin; Z88.8 Allergy status to other drugs, medicaments and biological substances; Z79.890 Hormone replacement therapy; Z79.899 Other long term (current) drug therapy; Z87.891 Personal history of nicotine dependence
CPT/HCPCS: 71045; 71275; 80053; 83735; 83880; 84443; 84484; 85025; A9270; J3010; J3475; J3480; J7050; Q9967